=== PATIENT | female | born 1950 | race Two or more races ===

== ENCOUNTER 2022-03-27 12:26 | Emergency (ER) | payer OTHER, SELFPAY ==
--- NOTE | ~2022-03-27 | CT_ITS ---
EXAMINATION: CT ABDOMEN AND PELVIS WITH CONTRAST CLINICAL INFORMATION: Left lower quadrant pain. Constipation. COMPARISON: None TECHNIQUE: Multidetector volumetric images were obtained from the superior aspect of the liver through the pubic symphysis following administration 85 mL of Omnipaque 350 intravenous contrast. Sagittal and coronal reformatted images were obtained on the technologist's workstation. Oral contrast: No This CT examination was performed using dose optimization techniques as appropriate, variously including the following: *Automated exposure control *Adjustment of mA and/or kV according to patient size (this includes techniques or standardized protocols for targeted exams where dose is matched to indication/reason for exam; i.e. extremities or head) *Use of iterative reconstruction technique DLP: 833 mGy-cm FINDINGS: LUNG BASES: The lung bases are clear. Coronary artery calcifications are present. LIVER, GALLBLADDER, AND BILIARY TREE: The liver is normal in size, shape, and attenuation. No focal hepatic lesion or biliary ductal dilatation is present. The gallbladder is absent. PANCREAS: Unremarkable. SPLEEN: Unremarkable. ADRENAL GLANDS: Unremarkable. KIDNEYS AND URETERS: The kidneys are normal in size, shape, and attenuation. No hydronephrosis, hydroureter, or calculi seen. No perinephric stranding. Simple cyst at the mid to lower pole of the left kidney anteriorly. No specific follow-up recommended. BLADDER: Unremarkable. GASTROINTESTINAL TRACT: The stomach is unremarkable. Normal caliber small bowel. There is no obstruction. Normal appendix. Mild diffuse colonic stool burden. Diverticulosis which is greatest at the sigmoid colon. No diverticulitis. Stool distends the rectum. No free air or free fluid. ABDOMINAL WALL: No significant hernia is appreciated. LYMPH NODES: Normal. VASCULAR: Normal caliber aorta with mild atherosclerotic calcification. Retroaortic left renal vein. PELVIC VISCERA: The uterus and adnexa are unremarkable. OSSEOUS STRUCTURES: No acute or suspicious osseous abnormality. Degenerative changes are seen throughout the spine. Mild degenerative change of both hips. CT/CT abdomen pelvis w IV con IMPRESSION: No acute findings of the abdomen or pelvis. Mild colonic stool burden. Diverticulosis without diverticulitis. Fleischner guidelines were followed.
--- NOTE | 2022-03-27 13:09 | ED.ABDPAIN ---
HPI - Abdominal Pain General Chief Complaint: General Medical <Miranda Henderson CNP - Last Filed: 03/27/22 13:14> Stated Complaint: Constipated 1xweek <Miranda Henderson CNP - Last Filed: 03/27/22 13:14> Time Seen by Provider: 03/27/22 14:00 <Miranda Henderson CNP - Last Filed: 03/27/22 13:14> Source: patient <Garo Rayo MD - Last Filed: 03/27/22 16:50> Mode of arrival: ambulatory <Garo Rayo MD - Last Filed: 03/27/22 16:50> Limitations: no limitations <Garo Rayo MD - Last Filed: 03/27/22 16:50> History of Present Illness HPI narrative: This is a 72 years old patient presented to the emergency department with chief complaint of constipation x1 week she was sent by the PCP for CT scan. The patient denies any nausea vomiting she has mild abdominal pain <Garo Rayo MD - Last Filed: 03/27/22 16:50> Pertinent past history: none <Garo Rayo MD - Last Filed: 03/27/22 16:50> Onset (ago): day(s) (7) <Garo Rayo MD - Last Filed: 03/27/22 16:50> Pain Consistency: constant <Garo Rayo MD - Last Filed: 03/27/22 16:50> Severity: mild <Garo Rayo MD - Last Filed: 03/27/22 16:50> Quality: cramping <Garo Rayo MD - Last Filed: 03/27/22 16:50> Related Data Allergies/Adverse Reactions: Allergies Allergy/AdvReac Type Severity Reaction Status Date / Time Unable to Assess Allergy Unverified 03/27/22 13:14 <Miranda Henderson CNP - Last Filed: 03/27/22 13:14> Review of Systems Constitutional: Reports no additional constitutional complaints <Garo Rayo MD - Last Filed: 03/27/22 16:50> Cardiovascular: Reports no additional cardiovascular complaints <Garo Rayo MD - Last Filed: 03/27/22 16:50> Gastrointestinal: Reports other (constipation) <Garo Rayo MD - Last Filed: 03/27/22 16:50> [facility] Past Medical History [facility] Narrative: constipation ,obesity <Garo Rayo MD - Last Filed: 03/27/22 16:50> Social History Social History: Social History Advance Directives: No <Miranda Henderson CNP - Last Filed: 03/27/22 13:14> Physical Exam ED Vital Signs: Vital Signs - 24 hr 03/27/22 13:10 Temperature 97.1 F Pulse Rate 96 Respiratory Rate 20 Blood Pressure 149/79 H Pulse Oximetry 96 Oxygen Delivery Method Room Air BMI result Body Mass Index 42.6 <Miranda Henderson CNP - Last Filed: 03/27/22 13:14> Vital Signs - 24 hr 03/27/22 13:10 Temperature 97.1 F Pulse Rate 96 Respiratory Rate 20 Blood Pressure 149/79 H Pulse Oximetry 96 Oxygen Delivery Method Room Air BMI result Body Mass Index 42.6 <Garo Rayo MD - Last Filed: 03/27/22 16:50> Const General: cooperative <Garo Rayo MD - Last Filed: 03/27/22 16:50> Nutritional Appearance: well nourished <Garo Rayo MD - Last Filed: 03/27/22 16:50> Orientation/consciousness: patient oriented x3 <Garo Rayo MD - Last Filed: 03/27/22 16:50> HENMT Head: Yes normal to inspection <Garo Rayo MD - Last Filed: 03/27/22 16:50> General nose exam: Normal external nose present <Garo Rayo MD - Last Filed: 03/27/22 16:50> Face and sinus: Yes normal facial exam <Garo Rayo MD - Last Filed: 03/27/22 16:50> Throat: Yes posterior oropharynx normal <Garo Rayo MD - Last Filed: 03/27/22 16:50> Neck Neck: Yes normal visual inspection and Yes full ROM <Garo Rayo MD - Last Filed: 03/27/22 16:50> Chest Chest palpation & inspection: normal inspection of the chest <Garo Rayo MD - Last Filed: 03/27/22 16:50> Resp Effort & Inspection: normal respiratory effort and able to speak in complete sentences <Garo Rayo MD - Last Filed: 03/27/22 16:50> Auscultation: clear to auscultation bilaterally <Garo Rayo MD - Last Filed: 03/27/22 16:50> Cardio Jugular venous distension: no JVD <Garo Rayo MD - Last Filed: 03/27/22 16:50> Rate: regular rate <Garo Rayo MD - Last Filed: 03/27/22 16:50> Rhythm: regular rhythm <Garo Rayo MD - Last Filed: 03/27/22 16:50> GI Inspection: Yes normal to inspection <Garo Rayo MD - Last Filed: 03/27/22 16:50> Palpation (GI): Soft to palpation, not firm, nontender and no guarding <Garo Rayo MD - Last Filed: 03/27/22 16:50> Auscultation: normal bowel sounds <Garo Rayo MD - Last Filed: 03/27/22 16:50> General: Yes no CVA tenderness <Garo Rayo MD - Last Filed: 03/27/22 16:50> Back/Spine/Pelvis Back: no CVA tenderness <Garo Rayo MD - Last Filed: 03/27/22 16:50> Skin General skin exam: no rashes or lesions noted, elasticity normal and turgor normal <Garo Rayo MD - Last Filed: 03/27/22 16:50> Lesions: no lesions <Garo Rayo MD - Last Filed: 03/27/22 16:50> Rashes: no rashes <Garo Rayo MD - Last Filed: 03/27/22 16:50> Neuro General: patient oriented x3 <Garo Rayo MD - Last Filed: 03/27/22 16:50> Cranial nerves: Yes CN's II-XII intact bilaterally <Garo Rayo MD - Last Filed: 03/27/22 16:50> Cognition (Neuro): normal cognition <Garo Rayo MD - Last Filed: 03/27/22 16:50> Gait exam (Neuro): Normal gait present <Garo Rayo MD - Last Filed: 03/27/22 16:50> Course Course Course Narrative: This is an RME: Additional HPI, ROS, PE not included below will be deferred to primary provider. Patient is a 72-year-old female who presents to the emergency department, Sent from primary care doctors office for constipation x 1 week and lower ABD pain, particullarly on the left. Was sent in due to concerns of presentation to evaluate for bowel obstruction. Reports she is taking Linzess, and Miralax without any improvement. She states occasionally with very small movements. Denies fevers, chills, nausea, vomiting, genitourinary symptoms. Denies any past history of bowel obstruction or abdominal surgery. Plan: labs, CT of ABD/pelvis <Miranda Henderson CNP - Last Filed: 03/27/22 13:14> Medical Decision Making Medical Decision Making MDM Narrative: 72 years old presented with abdominal pain differential diagnoses small-bowel obstruction diverticulitis constipation <Garo Rayo MD - Last Filed: 03/27/22 16:50> Differential Diagnosis SBO, diverticulitis, colitis, constipation <Garo Rayo MD - Last Filed: 03/27/22 16:50> Lab Data Result Diagrams: 03/27/22 13:26 03/27/22 13:26 <Miranda Henderson CNP - Last Filed: 03/27/22 13:14> Labs: Lab Results 03/27/22 03/27/22 Range/Units 13:26 13:26 WBC 9.0 (4.8-10.8) X10*3/uL RBC 4.88 (4.20-5.50) X10*6/uL Hgb 14.3 (12.0-16.0) g/dl Hct 44.6 (37.0-47.0) % MCV 91.4 (80.0-98.0) fL MCH 29.3 (27.0-33.0) pg MCHC 32.1 (31.0-35.0) g/dl RDW 13.3 (11.0-16.0) % Plt Count 263 (160-400) X10*3/uL MPV 9.6 (9.4-12.3) fL Immature Gran % (Auto) 0.4 (0.0-0.4) % Neut % (Auto) 68.0 (45-73) % Lymph % (Auto) 21.6 (20-40) % [place] % (Auto) 8.4 (2-11) % Eos % (Auto) 1.3 (0-4) % Baso % (Auto) 0.3 (0-2) % Lymph # (Auto) 1.9 (1.2-4.9) X10*3/uL [place] # (Auto) 0.8 (0.1-1.2) X10*3/uL Eos # (Auto) 0.1 (0.0-0.4) X10*3/uL Baso # (Auto) 0.0 (0.0-0.2) X10*3/uL Abs Immat Gran (auto) 0.04 H (0.00-0.03) X10*3/uL Absolute Neuts (auto) 6.1 (2.0-8.3) x10*3/uL Absolute Nucleated RBC 0.000 (0.0-0.012) X10*3/uL Nucleated RBC % (auto) 0.0 (0.0-0.2) /100WBC Sodium 141 (135-145) mmol/L Potassium 4.0 (3.3-5.1) mmol/L Chloride 107 (96-108) mmol/L Carbon Dioxide 25 (22-29) mmol/L Anion Gap 13 (12-20) BUN 20 H (9-16) mg/dL Creatinine 0.72 (0.5-1.4) mg/dL Estim Creat Clear Calc 73.6 Estimated GFR > 60 Random Glucose 65 (60-115) mg/dL Calcium 9.4 (8.4-10.2) mg/dL Total Bilirubin 0.3 (0.0-1.0) mg/dL AST 28 (5-31) U/L ALT 25 (0-31) U/L Alkaline Phosphatase 96 (39-117) U/L Total Protein 7.4 (6.5-8.0) g/dL Albumin 4.0 (3.5-5.0) g/dL Lipase 33 (8-78) U/L <Miranda Henderson, HVAC SERVICES PROFESSIONAL - Last Filed: 03/27/22 13:14> Lab Results 03/27/22 03/27/22 Range/Units 13:26 13:26 WBC 9.0 (4.8-10.8) X10*3/uL RBC 4.88 (4.20-5.50) X10*6/uL Hgb 14.3 (12.0-16.0) g/dl Hct 44.6 (37.0-47.0) % MCV 91.4 (80.0-98.0) fL MCH 29.3 (27.0-33.0) pg MCHC 32.1 (31.0-35.0) g/dl RDW 13.3 (11.0-16.0) % Plt Count 263 (160-400) X10*3/uL MPV 9.6 (9.4-12.3) fL Immature Gran % (Auto) 0.4 (0.0-0.4) % Neut % (Auto) 68.0 (45-73) % Lymph % (Auto) 21.6 (20-40) % [place] % (Auto) 8.4 (2-11) % Eos % (Auto) 1.3 (0-4) % Baso % (Auto) 0.3 (0-2) % Lymph # (Auto) 1.9 (1.2-4.9) X10*3/uL [place] # (Auto) 0.8 (0.1-1.2) X10*3/uL Eos # (Auto) 0.1 (0.0-0.4) X10*3/uL Baso # (Auto) 0.0 (0.0-0.2) X10*3/uL Abs Immat Gran (auto) 0.04 H (0.00-0.03) X10*3/uL Absolute Neuts (auto) 6.1 (2.0-8.3) x10*3/uL Absolute Nucleated RBC 0.000 (0.0-0.012) X10*3/uL Nucleated RBC % (auto) 0.0 (0.0-0.2) /100WBC Sodium 141 (135-145) mmol/L Potassium 4.0 (3.3-5.1) mmol/L Chloride 107 (96-108) mmol/L Carbon Dioxide 25 (22-29) mmol/L Anion Gap 13 (12-20) BUN 20 H (9-16) mg/dL Creatinine 0.72 (0.5-1.4) mg/dL Estim Creat Clear Calc 73.6 Estimated GFR > 60 Random Glucose 65 (60-115) mg/dL Calcium 9.4 (8.4-10.2) mg/dL Total Bilirubin 0.3 (0.0-1.0) mg/dL AST 28 (5-31) U/L ALT 25 (0-31) U/L Alkaline Phosphatase 96 (39-117) U/L Total Protein 7.4 (6.5-8.0) g/dL Albumin 4.0 (3.5-5.0) g/dL Lipase 33 (8-78) U/L <Garo Rayo MD - Last Filed: 03/27/22 16:50> Medications Administered Discontinued Medications Generic Name Dose Route Start Last Admin Trade Name Freq PRN Reason Stop Dose Admin Iohexol 100 ml 03/27/22 14:24 03/27/22 14:25 Iohexol 350 Mg/Ml 100 Ml Infus..Btl IV 03/27/22 14:25 85 ml ONCE ONE Administration Sodium Biphosphate/Sodium Phosphate 133 ml 03/27/22 15:37 03/27/22 15:49 Sodium Phosphate,[place]-Dibasic 133 Ml Enema [place] 03/27/22 15:38 133 ml ONCE ONE Administration <Miranda Henderson CNP - Last Filed: 03/27/22 13:14> Medications Administered Discontinued Medications Generic Name Dose Route Start Last Admin Trade Name Freq PRN Reason Stop Dose Admin Iohexol 100 ml 03/27/22 14:24 03/27/22 14:25 Iohexol 350 Mg/Ml 100 Ml Infus..Btl IV 03/27/22 14:25 85 ml ONCE ONE Administration Sodium Biphosphate/Sodium Phosphate 133 ml 03/27/22 15:37 03/27/22 15:49 Sodium Phosphate,[place]-Dibasic 133 Ml Enema [place] 03/27/22 15:38 133 ml ONCE ONE Administration <Garo Rayo MD - Last Filed: 03/27/22 16:50> Discharge Plan Discharge Clinical Impression: Constipation <Miranda Henderson CNP - Last Filed: 03/27/22 13:14> Patient Disposition: Home, Self-Care <Miranda Henderson CNP - Last Filed: 03/27/22 13:14> Instructions: Constipation (ED) <Miranda Henderson CNP - Last Filed: 03/27/22 13:14> Additional Instructions: Follow-up primary care physician return if you worse any concern <Miranda Henderson CNP - Last Filed: 03/27/22 13:14> Referrals: Richelle James MD [Primary Care Provider] - 03/30/22 <Miranda Henderson CNP - Last Filed: 03/27/22 13:14> Interventions: ED Discharge Assessment Last Done: 03/27/22 16:22 <Miranda Henderson CNP - Last Filed: 03/27/22 13:14> Discharge Date/Time: 03/27/22 16:24 <Miranda Henderson CNP - Last Filed: 03/27/22 13:14>
[2022-03-27 13:10] VITALS: BP 149/79; PULSE 96; RESP 20; TEMP 36.2; O2SAT 96; BMI 42.6
[2022-03-27 13:31] LABS: MANUAL DIFF FLAG NO
[2022-03-27 13:32] LABS: Basophils Percent Auto 0.3 % (0-2); Eosinophils Absolute Auto 0.1 X10*3/uL (0.0-0.4); Eosinophils Percent Auto 1.3 % (0-4); Hematocrit 44.6 % (37.0-47.0); Hemoglobin 14.3 g/dl (12.0-16.0); Imm Gran Abs Auto 0.04 X10*3/uL (0.00-0.03); Imm Gran Pct Auto 0.4 % (0.0-0.4); Lymphocytes Absolute Auto 1.9 X10*3/uL (1.2-4.9); Lymphocytes Percent Auto 21.6 % (20-40); Mean Corpuscular HGB Conc 32.1 g/dl (31.0-35.0); Mean Corpuscular Hemoglobin 29.3 pg (27.0-33.0); Mean Corpuscular Volume 91.4 fL (80.0-98.0); Mean Platelet Volume 9.6 fL (9.4-12.3); Monocytes Absolute Auto 0.8 X10*3/uL (0.1-1.2); Monocytes Percent Auto 8.4 % (2-11); Neutrophils Absolute Auto 6.1 x10*3/uL (2.0-8.3); Platelet Count 263 X10*3/uL (160-400); Red Blood Count 4.88 X10*6/uL (4.20-5.50); Red Cell Distribution Width 13.3 % (11.0-16.0)
[2022-03-27 13:55] LABS: Alanine Aminotransferase 25 U/L (0-31); Alkaline Phosphatase 96 U/L (39-117); Anion Gap 13 (12-20); Aspartate Amino Transferase 28 U/L (5-31); Bilirubin Total 0.3 mg/dL (0.0-1.0); Blood Urea Nitrogen 20 mg/dL (9-16); Calcium 9.4 mg/dL (8.4-10.2); Carbon Dioxide 25 mmol/L (22-29); Chloride 107 mmol/L (96-108); Creatinine Clr Calc Pharmacy 73.6; Estimated Glomerular Filt Rate > 60; Glucose Random 65 mg/dL (60-115); Lipase 33 U/L (8-78); Sodium 141 mmol/L (135-145); Total Protein 7.4 g/dL (6.5-8.0)
--- OUTSIDE RECORDS SUMMARY | 2022-03-27 13:58 | XMS_ITS | Continuity of Care Document ---
:1950 Author Organization [facility] Address [address] [place] [address] Drive [address] [place] [address]- Care Team Providers Name Role Phone Sandy Mccall MD Primary Care Physician [place] [facility] Date(s[place]/18/20 - 09/25/[address] [place] [id number] Attending Physician: Tata Leiva RD Referring Physician: Sandy Mccall MD Allergies, Adverse Reactions, Alerts Substance Reaction Severity Status NKA Active Medications amiTRIPTYLINE By Mouth, Daily at bedtime, 0 Refills, Maintenance, 07/05/14 11:53:41 Start Date: 07/05/14 Status: Orderedibuprofen 600 mg oral tablet 1 tablet = 600 mg, By Mouth, 4 times a day, PRN Pain, # 40 tablet, 2 Refills, Maintenance, Tablet Start Date: 11/18/09 Status: OrderedLinzess By Mouth, Daily, 0 Refills, Maintenance, 06/24/20 14:28:00 EDT, Partial fill upon patient request ifthe prescription is for a schedule II opioid drug. Start Date: 06/24/20 Status: OrderedOmeprazole By Mouth, Daily, 0 Refills, Maintenance, 07/05/14 11:53:47 Start Date: 07/05/14 Status: OrderedPercocet-2.5/325 1 tablet, By Mouth, Every 6 hours, 0 Refills, Maintenance, 12/02/17 10:06:34 EDT Start Date: 12/02/17 Status: Ordered Problem List Condition Effective Dates Status Health Status Informant Binge eating disorder, mild, in Active partial remission(Confirmed) Morbid obesity with BMI of 40.0-44.9, Active adult(Confirmed) Constipation(Confirmed) Active Depression(Confirmed) Active Periumblical hernia(Confirmed) Active Dyspepsia(Confirmed) Active Osteoarthritis(Confirmed) Active Prediabetes(Confirmed) Active Stomach pains(Confirmed) Active Vital Signs Most recent to oldest [Reference Range]: 1 Height 152 cm (09/18/20 1:07 PM) Weight 94.5 kg (09/18/20 1:07 PM) Body Mass Index [18.5-24.99] 40.9 *>HHI* (09/18/20 1:07 PM) Social History Social History Type Response Smoking Status Former smoker; Type: Cigaret bronson; Other: quit 48 yrs ago; entered on: 12/02/17 Sex
--- OUTSIDE RECORDS SUMMARY | 2022-03-27 13:58 | XMS_ITS | Continuity of Care Document ---
:1950 Author Organization [facility] Address Unavailable , Care Team Providers Name Role Phone Sandy Mccall MD Primary Care Physician Encounter [facility] [place] Date(s): 12/11/20 - 12/18/20 [facility] Attending Physician: Tata Leiva RD Allergies, Adverse Reactions, Alerts Substance Reaction Severity [...] oldest [Reference Range]: 1 Height 152 cm (12/11/20 2:25 PM) Weight 94.4 kg (12/11/20 2:25 PM) Body Mass Index [18.5-24.99] 40.86 *>HHI* (12/11/20 2:25 PM) Social History Social History Type Response Smoking Status Former smoker; Type: Cigaret bronson; Other: quit 48 yrs ago; entered on: 12/02/17 Sex
--- OUTSIDE RECORDS SUMMARY | 2022-03-27 13:58 | XMS_ITS | Continuity of Care Document ---
:1950 Author Organization [facility] Address Unavailable , Care Team Providers Name Role Phone Sandy Mccall MD Primary Care Physician Encounter [facility] Date(s): 10/30/20 - 11/06/20 [facility] Attending Physician: Tata Leiva RD Allergies, [...] oldest [Reference Range]: 1 Height 152 cm (10/30/20 11:33 AM) Weight 94.4 kg (10/30/20 11:33 AM) Body Mass Index [18.5-24.99] 40.86 *>HHI* (10/30/20 11:33 AM) Social History Social History Type Response Smoking Status Former smoker; Type: Cigaret bronson; Other: quit 48 yrs ago; entered on: 12/02/17 Sex
--- OUTSIDE RECORDS SUMMARY | 2022-03-27 13:58 | XMS_ITS | Continuity of Care Document ---
:1950 Author Organization [facility] Address [address] [place] [id number]- Care Team Providers Name Role Phone Sandy Mccall MD Primary Care Physician Encounter [facility] Date(s): 09/19/20 - 09/19/[address] [address]- Discharge Disposition: A-D/C Home Attending Physician: David TRAN, Hollis Robert Admitting Physician: David TRAN, Hollis Robert Referring Physician: Not on Staff, Referring MD Allergies, Adverse Reactions, Alerts Substance Reaction [...] Osteoarthritis(Confirmed) Active Prediabetes(Confirmed) Active Stomach pains(Confirmed) Active Results Radiology Reports Exam Date Time Procedure Performing Provider Status 09/19/20 2:32 PM Chest 2 Views Frontal and Lat Melissa Calvin n; Auth (Verified) Notes:(Chest 2 Views Frontal and Lat) Reason For Exam: AnginaRESULT: Chest 2 Views Frontal and Lat Chest 2 Views Frontal and Lat CLINICAL INDICATION: Chest pain and dizziness. COMPARISON: None available. FINDINGS: The cardiac silhouette is within normal limits. Hilar and mediastinal contours are normal.There is minimal calcification of the aortic arch. The lungs are clear. There is no pleural effusion, pneumothorax, or evidence of CHF. No acute osseous abnormality is noted. Left humeral prosthesis is seen. IMPRESSION: No acute cardiopulmonary process WSN: [id number] Ordering Physician: Gray Carvalho Dictated By: Alexandrea Arango MD Dictated Date/Time: 09/19/20 2:35 pm Reviewed By: Alexandrea Arango MD Signed By: Alexandrea Arango MD Signed Date/Time: 09/19/20 2:35 pm Transcribed By: DANIEL Transcribed Date/Time: 09/19/20 2:34 pm Vital Signs Most recent to oldest [Reference 1 2 3 Range]: Oxygen Saturation [94-100 %] 99 % 98 % 99 % (09/19/20 6:23 PM) (09/19/20 3:39 PM) (09/19/20 2:10 P M) Pulse Rate [55-90 bpm] 84 bpm 76 bpm 77 bpm (09/19/20 6:23 PM) (09/19/20 3:39 PM) (09/19/20 2:10 P M) Blood Pressure [90-138/55-84 mm 147/88 mm Hg 151/71 mm Hg 150/67 mm Hg Hg] *H* *H* *H* (09/19/20 6:23 PM) (09/19/20 3:39 PM) (09/19/20 2:10 P M) Respiratory Rate [16-30 br/min] 16 br/min 16 br/min 16 br/min (09/19/20 6:23 PM) (09/19/20 3:39 PM) (09/19/20 2:10 P M) Temperature [96.8-100.4 DegF] 98.2 DegF (09/19/20 12:59 PM) Mode of Delivery (Oxygen) Room air RA RA (09/19/20 6:23 PM) (09/19/20 3:39 PM) (09/19/20 2:10 P M) Blood pressure sites Arm, right (09/19/20 12:59 PM) Temperature Route Oral (09/19/20 12:59 PM) Social History Social History Type Response Smoking Status Former smoker; Type: Cigaret bronson; Other: quit 48 yrs ago; entered on: 12/02/17 Sex
--- OUTSIDE RECORDS SUMMARY | 2022-03-27 13:58 | XMS_ITS | Continuity of Care Document ---
:1950 Author Organization [facility] Address [address] [place] [phone]- Care Team Providers Name Role Phone Sandy Mccall MD [id number] Date(s): 09/17/20 - 10/17/[address] [address] Attending Physician: Rosmery Mann Admitting Physician: Rosmery Mann Referring Physician: AdmtrRosmery Allergies, Adverse Reactions, Alerts Substance Reaction Severity [...] Osteoarthritis(Confirmed) Active Prediabetes(Confirmed) Active Stomach pains(Confirmed) Active Social History Social History Type Response Smoking Status Former smoker; Type: Cigaret bronson; Other: quit 48 yrs ago; entered on: 12/02/17 Sex
--- OUTSIDE RECORDS SUMMARY | 2022-03-27 13:58 | XMS_ITS | Continuity of Care Document ---
:1950 Author Organization [facility] Address [facility] [address] [place] [id number]- Care Team Providers Name Role Phone Sandy Mccall MD Primary Care Physician [place] [facility] 06/16/19 [facility] [address] [place] [id number] [facility] Attending Physician: Rosmery Mann Admitting Physician: Rosmery Mann Referring Physician: AdmRosmery varela Allergies, Adverse Reactions, Alerts Substance Reaction Severity Status NKA Active Medications amiTRIPTYLINE By Mouth, Daily at bedtime, 0 Refills, Maintenance, 07/05/14 11:53:41 Start Date: 07/05/14 Status: OrderedAtivan 0.5 mg oral tablet 1 tablet = 0.5 mg, By Mouth, Every 6 hours, # 10 tablet, 0 Refills, Soft Stop, 06/11/18 23:30:58 EDT, Tablet Start Date: 06/11/18 Status: Orderedibuprofen 600 mg oral tablet 1 tablet = 600 mg, By Mouth, 4 times a day, PRN Pain, # 40 tablet, 2 Refills, Maintenance, Tablet Start Date: 11/18/09 Status: OrderedOmeprazole By Mouth, Daily, 0 Refills, Maintenance, 07/05/14 11:53:47 Start Date: 07/05/14 Status: OrderedPercocet-2.5/325 1 tablet, By Mouth, Every 6 hours, 0 Refills, Maintenance, 12/02/17 10:06:34 EDT Start Date: 12/02/17 Status: Orderedzolpidem 5 mg oral tablet 1 tablet = 5 mg, By Mouth, Daily at bedtime, PRN Sleep, # 14 tablet, 2 Refills, Maintenance, Tablet Start Date: 11/18/09 Status: Ordered Problem List Condition Effective Dates Status Health Status Informant Binge eating disorder, mild, in Active partial remission(Confirmed) Morbid obesity with BMI of 40.0-44.9, Active adult(Confirmed) Constipation(Confirmed) Active Depression(Confirmed) Active Periumblical hernia(Confirmed) Active Osteoarthritis(Confirmed) Active Stomach pains(Confirmed) Active Social History Social History Type Response Smoking Status Former smoker; Type: Cigaret bronson; Other: quit 48 yrs ago; entered on: 12/02/17 Sex
--- OUTSIDE RECORDS SUMMARY | 2022-03-27 13:58 | XMS_ITS | Continuity of Care Document ---
:1950 Author Organization [facility] Address [address] [place] [phone]- Care Team Providers Name Role Phone Sandy Mccall MD Primary Care Physician Encounter [facility] [place] Date(s): 07/18/21 - 07/18/[address] [address]- Discharge Disposition: A-D/C Home Attending Physician: Tre Webb MD Admitting Physician: Tre Webb MD Referring Physician: Not on Staff, Referring MD Allergies, Adverse Reactions, Alerts No Known Allergies Medications amiTRIPTYLINE By Mouth, Daily at bedtime, [...] II opioid drug. Start Date: 06/24/20 Status: OrderedMorPHINE Inj 4 mg, Injection, IV Push Slowly, Every 5 minutes for 3 doses/times, PRN for Pain , Moderate, and SBPgreater than 100, Routine, 07/18/21 13:40:00 EDT, Stop date Limited # of times Start Date: 07/18/21 Stop Date: 07/19/21 Status: DiscontinuedOmeprazole By Mouth, Daily, 0 Refills, Maintenance, 07/05/14 11:53:47 Start Date: 07/05/14 Status: OrderedPercocet-2.5/325 1 tablet, By Mouth, Every 6 hours, 0 Refills, Maintenance, 12/02/17 10:06:34 EDT Start Date: 12/02/17 Status: OrderedValium 10 mg oral tablet 10 mg, 1, tablet, By Mouth, 2 times a day, PRN, # 12 tablet, Refills 0, Tot. Refills 0, Maintenance,Pain , Moderate, 07/18/21 17:33:00 EDT, Route to Pharmacy Electronically, [facility]/pharmacy #[id number], Partial fill upon patient request if the prescription is... Start Date: 07/18/21 Status: Ordered Problem List Condition Effective Dates Status Health Status Informant Binge eating disorder, mild, in Active partial remission(Confirmed) Morbid obesity with BMI of 40.0-44.9, Active adult(Confirmed) Constipation(Confirmed) Active Depression(Confirmed) Active Periumblical hernia(Confirmed) Active Dyspepsia(Confirmed) Active Osteoarthritis(Confirmed) Active Prediabetes(Confirmed) Active Stomach pains(Confirmed) Active Vital Signs Most recent to oldest 1 2 3 [Reference Range]: Oxygen Saturation [94-100 %] 100 % 100 % 100 % (07/18/21 6:09 PM) (07/18/21 3:57 PM) (07/18/21 2:1 0 PM) Pulse Rate [55-90 bpm] 89 bpm 99 bpm 105 bpm (07/18/21 6:09 PM) *H* *H* (07/18/21 3:57 PM) (07/18/21 2:10 PM) Blood Pressure [90-138/55-84 mm 159/100 mm Hg 168/100 mm Hg 166/102 mm Hg Hg] *H* *H* *H* (07/18/21 6:09 PM) (07/18/21 3:57 PM) (07/18/21 2:1 0 PM) Respiratory Rate [16-30 br/min] 19 br/min 20 br/min 20 br/min (07/18/21 6:09 PM) (07/18/21 3:57 PM) (07/18/21 2:1 0 PM) Temperature [96.8-100.4 DegF] 98.7 DegF 98.8 DegF 98 .7 DegF (07/18/21 6:09 PM) (07/18/21 1:34 PM) (07/18/21 1:2 3 PM) Mode of Delivery (Oxygen) Room air Room air Room a ir (07/18/21 6:09 PM) (07/18/21 3:57 PM) (07/18/21 2:1 0 PM) Blood pressure sites Arm, left Arm, left Arm, left (07/18/21 6:09 PM) (07/18/21 3:57 PM) (07/18/21 2:1 0 PM) Temperature Route Oral Oral Oral (07/18/21 6:09 PM) (07/18/21 1:34 PM) (07/18/21 1:2 3 PM) Social History Social History Type Response Smoking Status Former smoker; Type: Cigaret bronson; Other: quit 48 yrs ago; entered on: 12/02/17 Sex
--- OUTSIDE RECORDS SUMMARY | 2022-03-27 13:58 | XMS_ITS | Continuity of Care Document ---
:1950 Author Organization [facility] Address Unavailable , Care Team Providers Name Role Phone Sandy Mccall MD Primary Care Physician Encounter [facility] [place] Date(s): 01/23/21 - 02/22/21 [facility] Attending Physician: Rosmery Mann Admitting Physician: Rosmery Mann Referring Physician: Rosmery Mann Allergies, Adverse Reactions, Alerts Substance Reaction Severity [...]
--- OUTSIDE RECORDS SUMMARY | 2022-03-27 13:58 | XMS_ITS | Continuity of Care Document ---
:1950 Author Organization [address] [place] [id number]- Care Team Providers Name Role Phone Sandy Mccall MD Primary Care Physician Encounter [facility] [place] Date(s): 06/24/20 - 08/11/[address] [place] [id number]- Attending Physician: Hollis Patel Referring Physician: Sandy Mccall MD Allergies, Adverse [...]
--- OUTSIDE RECORDS SUMMARY | 2022-03-27 13:58 | XMS_ITS | Continuity of Care Document ---
:1950 Author Organization [facility] Address Adult Weight Management [address] [place] [phone]- Care Team Providers Name Role Phone Sandy Mccall MD Primary Care Physician Encounter [facility] [place] Date(s): 04/14/19 - 07/06/19 [facility] Adult Weight Management [address] [place] [phone]- [facility] Attending Physician: Frandy Palumbo MD Referring Physician: Sandy Mccall MD Allergies, Adverse [...]
--- OUTSIDE RECORDS SUMMARY | 2022-03-27 13:58 | XMS_ITS | Continuity of Care Document ---
:1950 Author Organization [facility] Address [address] [place] [address] Drive [address] [place] [phone]- Care Team Providers Name Role Phone Sandy Mccall MD Primary Care Physician Encounter [facility] [id number] Date(s): 08/08/20 - 08/15/[address] [place] [id number]- Encounter Diagnosis Morbid obesity with BMI of 40.0-44.9, adult (Discharge Diagnosis) - 08/08/20 Attending Physician: Hollis Patel Referring Physician: Sandy [...] Osteoarthritis(Confirmed) Active Prediabetes(Confirmed) Active Stomach pains(Confirmed) Active Diagnosis Diagnosis Type Effective Dates Health Status Clinical In [facility] Service Morbid obesity Discharge 08/08/20 with BMI of Diagnosis 40.0-44.9, adult Vital Signs Most recent to oldest [Reference Range]: 1 Height 151.13 cm (08/08/20 9:12 AM) Weight 95.6 kg (08/08/20 9:12 AM) Pulse Rate [55-90 bpm] 88 bpm (08/08/20 9:12 AM) Body Mass Index [18.5-24.99] 41.86 *>HHI* (08/08/20 9:12 AM) Blood Pressure [90-138/55-84 mm Hg] 139/84 mm Hg *H* (08/08/20 9:12 AM) Temperature [96.8-100.4 DegF] 96.9 DegF (08/08/20 9:12 AM) Blood pressure sites Arm, left (08/08/20 9:12 AM) Temperature Route Temporal (08/08/20 9:12 AM) Weight Obtained Via Standing scale (08/08/20 9:12 AM) Social History Social History Type Response Smoking Status Former smoker; Type: Cigaret bronson; Other: quit 48 yrs ago; entered on: 12/02/17 Sex
--- OUTSIDE RECORDS SUMMARY | 2022-03-27 13:59 | XMS_ITS | Continuity of Care Document ---
:1950 Author Organization [facility] Address [address] [place] [phone]- Care Team Providers Name Role Phone Sandy Mccall MD Primary Care Physician Encounter [facility] [place] Date(s): 09/08/21 - 09/08/[address] [phone]- Encounter Diagnosis Acute post-operative pain (Final) - 09/08/21 Arm numbness left (Final) - 09/08/21 Discharge Disposition: Transferred to an intermediate care faci Attending Physician: Aditi Guardado MD Admitting Physician: Aditi Guardado MD Referring Physician: Not on Staff, Referring [...] Maintenance, 07/05/14 11:53:47 Start Date: 07/05/14 Status: OrderedoxyCODONE 5 mg oral tablet 5 mg, Tablet, By Mouth, Every 2 hours, PRN for Pain , Moderate, Routine, 09/08/21 2:26:00 EDT Start Date: 09/08/21 Stop Date: 09/08/21 Status: DiscontinuedPercocet-2.5/325 1 tablet, By Mouth, Every 6 hours, 0 Refills, Maintenance, 12/02/17 10:06:34 EDT Start Date: 12/02/17 Status: OrderedValium 10 mg oral tablet 10 mg, 1, tablet, By Mouth, 2 times a day, PRN, # 12 tablet, Refills 0, Tot. Refills 0, Maintenance,Pain , Moderate, 07/18/21 17:33:00 EDT, Route to Pharmacy Electronically, [facility]/pharmacy #[id number], Partial fill upon patient request if the prescription is... Start Date: 07/18/21 Status: Ordered Problem List Condition Effective Dates Status Health Status Informant Binge eating disorder, mild, in Active partial remission(Confirmed) Morbid obesity with BMI of 40.0-44.9, Active adult(Confirmed) Constipation(Confirmed) Active Depression(Confirmed) Active Periumblical hernia(Confirmed) Active Dyspepsia(Confirmed) Active Obese class II(Confirmed) Active Osteoarthritis(Confirmed) Active Prediabetes(Confirmed) Active Stomach pains(Confirmed) Active Vital Signs Most recent to oldest 1 2 3 [Reference Range]: Height 157.4 cm 157.4 cm (09/08/21 12:59 AM) (09/08/21 12:45 AM) Weight 95.4 kg 95.4 kg (09/08/21 12:59 AM) (09/08/21 12:45 AM) Oxygen Saturation [94-100 %] 96 % 95 % (09/08/21 4:14 AM) (09/08/21 12:45 AM) Pulse Rate [55-90 bpm] 84 bpm 94 bpm (09/08/21 4:14 AM) *H* (09/08/21 12:45 AM) Body Mass Index [18.5-24.99] 38.51 *>HHI* (09/08/21 12:45 AM) Blood Pressure [90-138/55-84 128/66 mm Hg 135/60 mm Hg mm Hg] (09/08/21 4:14 AM) (09/08/21 12:45 AM) Respiratory Rate [16-30 13 br/min 17 br/min 17 br/mi n br/min] *L* (09/08/21 2:07 AM) (09/08/21 12:45 AM) (09/08/21 4:14 AM) Temperature [96.8-100.4 98.9 DegF DegF] (09/08/21 12:45 AM) Mode of Delivery (Oxygen) Room air Room air (09/08/21 4:14 AM) (09/08/21 12:45 AM) Blood pressure sites Arm, right Arm, right (09/08/21 4:14 AM) (09/08/21 12:45 AM) Temperature Route Oral (09/08/21 12:45 AM) Dry Weight 95.4 kg 95.4 kg (09/08/21 12:59 AM) (09/08/21 12:45 AM) Social History Social History Type Response Smoking Status Former smoker; Type: Cigaret bronson; Other: quit 48 yrs ago; entered on: 12/02/17 Sex
--- OUTSIDE RECORDS SUMMARY | 2022-03-27 13:59 | XMS_ITS | Continuity of Care Document ---
:1950 Author Organization [facility] Address Unavailable , Care Team Providers Name Role Phone Sandy Mccall MD Primary Care Physician Encounter [facility] [place] Date(s): 12/11/20 - 02/22/21 [facility] Attending Physician: Tata Leiva RD Allergies, [...]
--- NOTE | 2022-03-27 14:06 | ED_ITS ---
HPI - General Adult General Chief complaint: General Medical Stated complaint: Constipated 1xweek Time Seen by Provider: 03/27/22 14:00 Related Data Allergies Allergy/AdvReac Type Severity Reaction Status Date / Time Unable to Assess Allergy Unverified 03/27/22 13:14 PMF Social History Social History Advance Directives: No Physical Exam ED Vital Signs: Vital Signs - 24 hr 03/27/22 13:10 Temperature 97.1 F Pulse Rate 96 Respiratory Rate 20 Blood Pressure 149/79 H Pulse Oximetry 96 Oxygen Delivery Method Room Air BMI result Body Mass Index 42.6 Course Reevaluation(s) Reevaluation #1: Rectal exam was done no impaction ,enema given by me in ED Time: 15:53 Reevaluation #2: Pt had large Bowel movement in ED,feels much better Time: 16:19 Medications Administered Discontinued Medications Generic Name Dose Route Start Last Admin Trade Name Freq PRN Reason Stop Dose Admin Iohexol 100 ml 03/27/22 14:24 03/27/22 14:25 Iohexol 350 Mg/Ml 100 Ml Infus..Btl IV 03/27/22 14:25 85 ml ONCE ONE Administration Sodium Biphosphate/Sodium Phosphate 133 ml 03/27/22 15:37 03/27/22 15:49 Sodium Phosphate,King-Dibasic 133 Ml Enema NH 03/27/22 15:38 133 ml ONCE ONE Administration Medical Decision Making Medical Decision Making [facility] Narrative: presented c/o constipation X 1 week concern for SBO Differential Diagnosis Differential Diagnoses: The differential diagnosis associated with the presentation includes SBO/Colitis Admission/Observation Consideration of admission/observation: Escalation of care including admission/observation considered Lab Data [facility] Lab Attestation statement: I reviewed the patient's lab results. 03/27/22 13:26 03/27/22 13:26 Labs: Lab Results 03/27/22 03/27/22 Range/Units 13:26 13:26 WBC 9.0 (4.8-10.8) X10*3/uL RBC 4.88 (4.20-5.50) X10*6/uL Hgb 14.3 (12.0-16.0) g/dl Hct 44.6 (37.0-47.0) % MCV 91.4 (80.0-98.0) fL MCH 29.3 (27.0-33.0) pg MCHC 32.1 (31.0-35.0) g/dl RDW 13.3 (11.0-16.0) % Plt Count 263 (160-400) X10*3/uL MPV 9.6 (9.4-12.3) fL Immature Gran % (Auto) 0.4 (0.0-0.4) % Neut % (Auto) 68.0 (45-73) % Lymph % (Auto) 21.6 (20-40) % King % (Auto) 8.4 (2-11) % Eos % (Auto) 1.3 (0-4) % Baso % (Auto) 0.3 (0-2) % Lymph # (Auto) 1.9 (1.2-4.9) X10*3/uL King # (Auto) 0.8 (0.1-1.2) X10*3/uL Eos # (Auto) 0.1 (0.0-0.4) X10*3/uL Baso # (Auto) 0.0 (0.0-0.2) X10*3/uL Abs Immat Gran (auto) 0.04 H (0.00-0.03) X10*3/uL Absolute Neuts (auto) 6.1 (2.0-8.3) x10*3/uL Absolute Nucleated RBC 0.000 (0.0-0.012) X10*3/uL Nucleated RBC % (auto) 0.0 (0.0-0.2) /100WBC Sodium 141 (135-145) mmol/L Potassium 4.0 (3.3-5.1) mmol/L Chloride 107 (96-108) mmol/L Carbon Dioxide 25 (22-29) mmol/L Anion Gap 13 (12-20) BUN 20 H (9-16) mg/dL Creatinine 0.72 (0.5-1.4) mg/dL Estim Creat Clear Calc 73.6 Estimated GFR > 60 Random Glucose 65 (60-115) mg/dL Calcium 9.4 (8.4-10.2) mg/dL Total Bilirubin 0.3 (0.0-1.0) mg/dL AST 28 (5-31) U/L ALT 25 (0-31) U/L Alkaline Phosphatase 96 (39-117) U/L Total Protein 7.4 (6.5-8.0) g/dL Albumin 4.0 (3.5-5.0) g/dL Lipase 33 (8-78) U/L ABG Data Attestation ABG: I personally reviewed and interpreted this ABG as follows: Independent Interpretation I performed an independent interpretation of an: CT Scan Interpretation: ABDOMINAL WALL: No significant hernia is appreciated.? LYMPH NODES: Normal. VASCULAR: Normal caliber aorta with mild atherosclerotic calcification. Retroaortic left renal vein. PELVIC VISCERA: The uterus and adnexa are unremarkable.? OSSEOUS STRUCTURES: No acute or suspicious osseous abnormality. Degenerative changes are seen throughout the spine. Mild degenerative change of both hips.? CT/CT abdomen pelvis w IV con IMPRESSION: No acute findings of the abdomen or pelvis. Mild colonic stool burden. Diverticulosis without diverticulitis. ? Fleischner guidelines were followed. Dictated By: Kelvin Machuca MD Signed By: <Electronically signed by Kelvin Machuca MD in OV> 03/27/22 1452 Independent Historian Clinical information obtained from an independent historian. History obtained from or confirmed by: Other (daughter) Discharge Plan Discharge Clinical Impression: Constipation Patient Disposition: Home, Self-Care Instructions: Constipation (ED) Additional Instructions: Follow-up primary care physician return if you worse any concern Referrals: Richelle James MD [Primary Care Provider] - 03/30/22 Interventions: ED Discharge Assessment Last Done: 03/27/22 16:22 Discharge Date/Time: 03/27/22 16:24
[2022-03-27] MEDS: iohexoL 350 MG/ML 100 ML INFUS..BTL IV (14:25)
[2022-03-27] MEDS: Sodium Phosphate,Mono-Dibasic 133 ML ENEMA PR (15:49)
== END 2022-03-27 16:24 | disposition home or self-care (01) ==
PROVIDERS: Nurse Practitioner Family; Emergency Provider Emergency Medicine; PCP Internal Medicine
DX: K59.00 Constipation, unspecified (principal); R10.9 Unspecified abdominal pain; Z79.899 Other long term (current) drug therapy
CPT/HCPCS: 36415; 74177; 80053; 83690; 85025; 99283; 99284; Q9967

== ENCOUNTER → 2022-04-24 09:50 | Outpatient (BNVA) | payer OTHER, SELFPAY | PROVIDERS: PCP Internal Medicine; Visit Provider Psychiatry & Neurology Neurology | DX: F09 Unspecified mental disorder due to known physiological condition (principal); R06.83 Snoring; G47.10 Hypersomnia, unspecified | CPT/HCPCS: 99202 ==

== ENCOUNTER → 2022-05-15 13:02 | Outpatient (REF) | payer OTHER, SELFPAY | LOC: HO.SL 13:02 | PROVIDERS: PCP Internal Medicine; Visit Provider Psychiatry & Neurology Neurology | DX: R06.83 Snoring (principal); G47.10 Hypersomnia, unspecified | CPT/HCPCS: 95806 ==

== ENCOUNTER 2022-05-20 12:48 | Outpatient (REF) | payer OTHER, SELFPAY ==
--- NOTE | ~2022-05-20 | MR_ITS ---
EXAMINATION: MR BRAIN WITHOUT CONTRAST CLINICAL INFORMATION: Cognitive disorder COMPARISON: None TECHNIQUE: Multiplanar multisequence MR imaging of the brain was obtained without intravenous contrast. FINDINGS: There is no acute infarct on diffusion-weighted imaging. There is no intracranial hemorrhage on iron-sensitive imaging. No extra-axial collection or mass effect/herniation. Patchy periventricular and deep white matter and left central jacey T2 FLAIR hyperintensities consistent with mild to moderate underlying microangiopathy. No hydrocephalus. Mild age-appropriate generalized cerebral volume loss The major flow voids at the skull base are preserved. The midline structures are normal. The cerebellar tonsils are normally positioned. The craniocervical junction is normal. Marrow signal is within normal limits. The visualized soft tissues are without significant abnormality. No signal abnormality within the paranasal sinuses or within the mastoid air cells. MR/MR head/brain wo con IMPRESSION: No acute intracranial process Mild generalized cerebral volume loss and mild to moderate chronic microangiopathy.
== END 2022-05-20 12:49 | disposition home or self-care (01) ==
LOC: HO.MRI 12:48
PROVIDERS: PCP Internal Medicine; Visit Provider Psychiatry & Neurology Neurology
DX: F09 Unspecified mental disorder due to known physiological condition (principal)
CPT/HCPCS: 70551

== ENCOUNTER 2022-07-07 20:56 | Emergency (ER) | payer OTHER, SELFPAY ==
--- NOTE | 2022-07-07 | ECG_ITS ---
Test Reason : TACHYCARDIA Blood Pressure : / mmHG Vent. Rate : 121 BPM Atrial Rate : 121 BPM P-R Int : 150 ms QRS Dur : 088 ms QT Int : 334 ms P-R-T Axes : 052 -23 069 degrees QTc Int : 474 ms Sinus tachycardia Possible Anterior infarct , age undetermined Abnormal ECG No previous ECGs available Referred By: Generic ED Physician Electronically Signed By:JASMYNE CARRERA
--- NOTE | ~2022-07-07 | CT_ITS ---
EXAMINATION: CT ABDOMEN AND PELVIS WITHOUT CONTRAST CLINICAL INFORMATION: Right upper quadrant pain COMPARISON: CT abdomen pelvis 03/27/2022 TECHNIQUE: Multidetector volumetric imaging was performed from the superior aspect of the liver through the pubic symphysis. Sagittal and coronal reformatted images were obtained on the technologist's workstation. This CT examination was performed using dose optimization techniques as appropriate, variously including the following: *Automated exposure control *Adjustment of mA and/or kV according to patient size (this includes techniques or standardized protocols for targeted exams where dose is matched to indication/reason for exam; i.e. extremities or head) *Use of iterative reconstruction technique DLP: 807 mGy-cm FINDINGS: LUNG BASES: The visualized lung bases are unremarkable. LIVER, GALLBLADDER, AND BILIARY TREE: The liver is normal in size, shape, and attenuation. No focal hepatic lesion or biliary ductal dilatation is present. The gallbladder is not seen. PANCREAS: Unremarkable. SPLEEN: Unremarkable. ADRENAL GLANDS: Unremarkable. KIDNEYS AND URETERS: The kidneys are normal in size, shape, and attenuation. There is a benign 3.5 cm Bosniak class I left renal cyst which needs no additional imaging or follow-up. No solid renal masses. No hydronephrosis, hydroureter, or calculi seen. No perinephric stranding. BLADDER: Unremarkable. GASTROINTESTINAL TRACT: There is sigmoid diverticulosis without diverticulitis The small and large bowel are unremarkable. The appendix, if present, is quite short. There is no evidence of appendicitis.. ABDOMINAL WALL: No significant hernia is appreciated. Dependent fluid/anasarca present behind the lumbosacral spine in the subcutaneous tissues. LYMPH NODES: No retroperitoneal lymphadenopathy. Some mild josué changes are present in the bowel mesentery. VASCULAR: Calcific atherosclerotic plaque without aneurysm PELVIC VISCERA: The uterus and adnexa are unremarkable. OSSEOUS STRUCTURES: Degenerative changes are noted throughout the spine. No bony destructive lesions. CT/CT abdomen pelvis wo IV con IMPRESSION: 1. A cause for the patient's abdominal pain has not been found. 2. Incidental note made of cholecystectomy, sigmoid diverticulosis without diverticulitis and degenerative changes in the spine. Fleischner guidelines were followed.
[2022-07-07 20:57] VITALS: BP 160/90; PULSE 126; RESP 18; TEMP 36.8; BMI 48.4
[2022-07-07 21:30] LABS: MANUAL DIFF FLAG NO
[2022-07-07 21:32] LABS: Basophils Percent Auto 0.4 % (0-2); Eosinophils Absolute Auto 0.1 X10*3/uL (0.0-0.4); Eosinophils Percent Auto 0.6 % (0-4); Hematocrit 41.2 % (37.0-47.0); Hemoglobin 13.2 g/dl (12.0-16.0); Imm Gran Abs Auto 0.04 X10*3/uL (0.00-0.03); Imm Gran Pct Auto 0.4 % (0.0-0.4); Lymphocytes Absolute Auto 0.4 X10*3/uL (1.2-4.9); Lymphocytes Percent Auto 4.1 % (20-40); Mean Corpuscular Hemoglobin 29.3 pg (27.0-33.0); Mean Corpuscular Volume 91.6 fL (80.0-98.0); Mean Platelet Volume 9.7 fL (9.4-12.3); Monocytes Absolute Auto 0.5 X10*3/uL (0.1-1.2); Monocytes Percent Auto 4.7 % (2-11); Neutrophils Absolute Auto 8.9 x10*3/uL (2.0-8.3); Neutrophils Percent Auto 89.8 % (45-73); Platelet Count 219 X10*3/uL (160-400); Red Cell Distribution Width 13.3 % (11.0-16.0); White Blood Count 9.9 X10*3/uL (4.8-10.8)
[2022-07-07 21:54] LABS: Anion Gap 14 (12-20); Blood Urea Nitrogen 19 mg/dL (9-16); Calcium 8.6 mg/dL (8.4-10.2); Carbon Dioxide 23 mmol/L (22-29); Chloride 105 mmol/L (96-108); Creatinine Clr Calc Pharmacy 81.9; Estimated Glomerular Filt Rate > 60; Glucose Random 177 mg/dL (60-115); Lipase 34 U/L (8-78); Sodium 138 mmol/L (135-145)
[2022-07-07 22:00] VITALS: PULSE 115; RESP 19; TEMP 37.4; O2SAT 94
[2022-07-07 22:04] LABS: Troponin-I High Sensitivity 11.7 ng/L (<3.5-17.0)
[2022-07-07 22:50] LABS: Appearance Urine Clear; Color Urine Yellow; Glucose Urine UA Negative (Negative); Leukocyte Esterase Urine Negative (Negative); Nitrite Urine Negative (Negative); PH 5.5 (5.0-9.0); Specific Gravity - Urine >= 1.030 (1.005-1.025); Urine Blood Negative (Negative); Urine Ketones 15 mg/dL (Negative); Urine Protein Trace mg/dL (Neg-Trace)
--- NOTE | 2022-07-07 23:22 | ED_ITS ---
HPI - General Adult General Chief complaint: Nausea/Vomiting/Diarrhea Stated complaint: Dizziness/Nauseas/Vomiting Time Seen by Provider: 07/07/22 22:33 Source: patient, family and bilingual interpreter Mode of arrival: ambulatory History of Present Illness HPI narrative: 72-year-old female with recent diagnosis of diabetes, 3 months ago, started on metformin presents with acute onset of nausea and vomiting after breakfast today she also complains of right upper quadrant pain. The daughter who is at bedside tried to help her throughout the day but patient continued to have episodes of nausea and vomiting. Patient denies any urinary symptoms, shortness of breath, chest pain/palpitations but states that her whole body aches. Related Data Home Medications Medication Instructions Recorded Confirmed amitriptyline 25 mg tablet 50 mg PO BEDTIME 04/15/22 gabapentin 300 mg capsule 300 - 600 mg PO BEDTIME 04/15/22 glipizide 5 mg tablet 5 mg PO DAILY 04/15/22 ibuprofen 800 mg tablet 800 mg PO DAILY PRN pain 04/15/22 linaclotide 145 mcg capsule 145 mcg PO QAM 04/15/22 (Linzess) omeprazole 20 mg capsule,delayed 20 mg PO DAILY 04/15/22 release polyethylene glycol 3350 17 g PO 04/15/22 gram/dose oral powder tizanidine 2 mg capsule 2 mg PO TID PRN muscle spasm 04/15/22 atorvastatin 20 mg tablet 20 mg PO DAILY 04/24/22 lactulose 10 gram/15 mL oral ml PO 04/24/22 solution Allergies Allergy/AdvReac Type Severity Reaction Status Date / Time No Known Allergies Allergy Verified 04/24/22 10:14 Review of Systems Review of Systems: Pertinent positives and negatives as stated in HPI [facility] Past Medical History Source: nursing notes reviewed Medical History Cervical disc disease Cognitive disorder COVID Depression Diabetes DJD (degenerative joint disease) Fibromyalgia Hyperlipidemia Hypersomnia Insomnia Lung nodule Obesity (BMI 35.0-39.9 without comorbidity) Snoring Spinal stenosis Thyroid nodule Surgical History History of bunionectomy Hx of cervical spine surgery Hx of shoulder surgery Status post right knee replacement Family History Family History Sister Diabetes Social History Social History Alcohol intake: never Patient Tobacco Use Status: Never used Tobacco Advance Directives: No Advance Directives Information Provided: Yes Physical Exam ED Vital Signs: Vital Signs - 24 hr 07/07/22 20:57 07/07/22 22:00 07/08/22 01:15 Temperature 98.3 F 99.3 F 98.1 F Pulse Rate 126 H 115 H 107 H Respiratory Rate 18 19 16 Blood Pressure 160/90 H 113/72 Pulse Oximetry 94 96 Oxygen Delivery Method Room Air Room Air BMI result Body Mass Index 48.4 VITAL SIGNS: Reviewed. GENERAL: Elevated BMI, Well developed, well nourished, in no acute distress. HEAD: Normocephalic/atraumatic EYES: PERRLA, EOMI EARS: Ext canals without abnormality OROPHARYNX: no oral lesions noted, posterior pharynx clear NECK: Supple, no adenopathy LUNGS: Normal breath sounds. No adventitious sounds or accessory muscle use. SpO2<94> CARDIOVASCULAR: Regular rate and rhythm without noted murmurs, no JVD or lower extremity edema. ABDOMEN: Soft, right upper quadrant pain, non-distended with bowel sounds. MUSCULOSKELETAL: No tenderness, deformities, or effusions noted on gross inspection. EXTREMITIES: No cyanosis, clubbing or edema. SKIN: Inspection of the skin reveals no rashes, but tactile fever NEUROLOGIC: Alert and oriented x 4. Strength and sensation to light touch were grossly intact x 4. Medications Administered Discontinued Medications Generic Name Dose Route Start Last Admin Trade Name Freq PRN Reason Stop Dose Admin Sodium Chloride 1,000 mls @ 999 mls/hr 07/07/22 23:30 07/07/22 23:40 Ns IV 07/08/22 00:30 999 mls/hr .Q1H1M DAMIÁN Administration Ondansetron HCl 4 mg 07/07/22 23:17 07/07/22 23:40 Ondansetron Hcl 4 Mg/2 Ml Vial IVPUSH 07/07/22 23:18 4 mg ONCE ONE Administration Medical Decision Making Medical Decision Making [facility] Narrative: [id number]: 72-year-old female with multiple episodes of nausea and vomiting, she is status post appendectomy and has no other intra-abdominal surgeries. She did have a bowel movement during 1 of her episodes of vomiting. On review of all investigations I do not appreciate any leukocytosis or evidence to suggest a UTI, will proceed with CT scan of the abdomen On review of the workup in its entirety my interpretation is that patient likely became mildly dehydrated, developed some dizziness secondary to this, she is otherwise nonfocal and suspect a mild gastroenteritis. Patient's tachycardia has resolved with IV fluids, she received Zofran and is tolerating oral intake and is otherwise discharged home in stable condition. On re-evaluation, patient states that she is feeling much better. Differential Diagnosis Please see the discussion above Lab Data Please see the discussion above 07/07/22 21:25 07/07/22 21:25 Labs: Lab Results 07/07/22 07/07/22 07/07/22 Range/Units 21:24 21:25 21:25 WBC 9.9 (4.8-10.8) X10*3/uL RBC 4.50 (4.20-5.50) X10*6/uL Hgb 13.2 (12.0-16.0) g/dl Hct 41.2 (37.0-47.0) % MCV 91.6 (80.0-98.0) fL MCH 29.3 (27.0-33.0) pg MCHC 32.0 (31.0-35.0) g/dl RDW 13.3 (11.0-16.0) % Plt Count 219 (160-400) X10*3/uL MPV 9.7 (9.4-12.3) fL Immature Gran % (Auto) 0.4 (0.0-0.4) % Neut % (Auto) 89.8 H (45-73) % Lymph % (Auto) 4.1 L (20-40) % [place] % (Auto) 4.7 (2-11) % Eos % (Auto) 0.6 (0-4) % Baso % (Auto) 0.4 (0-2) % Lymph # (Auto) 0.4 L (1.2-4.9) X10*3/uL [place] # (Auto) 0.5 (0.1-1.2) X10*3/uL Eos # (Auto) 0.1 (0.0-0.4) X10*3/uL Baso # (Auto) 0.0 (0.0-0.2) X10*3/uL Abs Immat Gran (auto) 0.04 H (0.00-0.03) X10*3/uL Absolute Neuts (auto) 8.9 H (2.0-8.3) x10*3/uL Absolute Nucleated RBC 0.000 (0.0-0.012) X10*3/uL Nucleated RBC % (auto) 0.0 (0.0-0.2) /100WBC Sodium 138 (135-145) mmol/L Potassium 4.0 (3.3-5.1) mmol/L Chloride 105 (96-108) mmol/L Carbon Dioxide 23 (22-29) mmol/L Anion Gap 14 (12-20) BUN 19 H (9-16) mg/dL Creatinine 0.70 (0.5-1.4) mg/dL Estim Creat Clear Calc 81.9 Estimated GFR > 60 Random Glucose 177 H (60-115) mg/dL Calcium 8.6 D (8.4-10.2) mg/dL Troponin I High Sens 11.7 (<3.5-17.0) ng/L Lipase 34 (8-78) U/L Urine Color Urine Appearance Urine pH (5.0-9.0) Ur Specific [place] (1.005-1.025) Urine Protein (Neg-Trace) mg/dL Urine Glucose (UA) (Negative) mg/dL Urine Ketones (Negative) mg/dL Urine Blood (Negative) Urine Nitrite (Negative) Ur Leukocyte Esterase (Negative) COVID-19 (SELINA) (Negative) COVID-19 Clin Com 07/07/22 07/07/22 Range/Units 22:40 23:58 WBC (4.8-10.8) X10*3/uL RBC (4.20-5.50) X10*6/uL Hgb (12.0-16.0) g/dl Hct (37.0-47.0) % MCV (80.0-98.0) fL MCH (27.0-33.0) pg MCHC (31.0-35.0) g/dl RDW (11.0-16.0) % Plt Count (160-400) X10*3/uL MPV (9.4-12.3) fL Immature Gran % (Auto) (0.0-0.4) % Neut % (Auto) (45-73) % Lymph % (Auto) (20-40) % [place] % (Auto) (2-11) % Eos % (Auto) (0-4) % Baso % (Auto) (0-2) % Lymph # (Auto) (1.2-4.9) X10*3/uL [place] # (Auto) (0.1-1.2) X10*3/uL Eos # (Auto) (0.0-0.4) X10*3/uL Baso # (Auto) (0.0-0.2) X10*3/uL Abs Immat Gran (auto) (0.00-0.03) X10*3/uL Absolute Neuts (auto) (2.0-8.3) x10*3/uL Absolute Nucleated RBC (0.0-0.012) X10*3/uL Nucleated RBC % (auto) (0.0-0.2) /100WBC Sodium (135-145) mmol/L Potassium (3.3-5.1) mmol/L Chloride (96-108) mmol/L Carbon Dioxide (22-29) mmol/L Anion Gap (12-20) BUN (9-16) mg/dL Creatinine (0.5-1.4) mg/dL Estim Creat Clear Calc Estimated GFR Random Glucose (60-115) mg/dL Calcium (8.4-10.2) mg/dL Troponin I High Sens (<3.5-17.0) ng/L Lipase (8-78) U/L Urine Color Yellow Urine Appearance Clear Urine pH 5.5 (5.0-9.0) Ur Specific [place] >= 1.030 H (1.005-1.025) Urine Protein Trace (Neg-Trace) mg/dL Urine Glucose (UA) Negative (Negative) mg/dL Urine Ketones 15 (Negative) mg/dL Urine Blood Negative (Negative) Urine Nitrite Negative (Negative) Ur Leukocyte Esterase Negative (Negative) COVID-19 ([facility]INA) Negative (Negative) COVID-19 Clin Com See Note Independent Interpretation I performed an independent interpretation of an: EKG Interpretation: Sinus tachycardia, HR-121, no STEMI, SD/QRS/QTC is within normal limits. Radiology Impression Radiologist Impression: My interpretation is in agreement with radiology's impression of the imaging studies. External Record Review External record reviewed: Outpatient record and Prior outpatient labs Chronic Conditions Patient?s care impacted by: Diabetes Discharge Plan Discharge Clinical Impression: Mild dehydration, Gastroenteritis Patient Disposition: Home, Self-Care Instructions: Dehydration (ED), Gastroenteritis (ED) Additional Instructions: 1. Reanudar todos los medicamentos caseros seg?n lo prescrito. 2. Contin?e bebiendo ba agua. 3. Alvaro un seguimiento con hines proveedor de atenci?n primaria llamando a la oficina por la ma?jacey y programando octavia saundra para octavia reevaluaci?n. Regrese a la german de emergencias si los s?ntomas empeoran. 1. Resume all home medications as prescribed. 2. Continue to drink plenty of water. 3. Follow-up with your primary care provider by calling the office in the morning and setting up an appointment for re-evaluation. Return to the ER for any worsening symptoms. Prescriptions: No Action omeprazole 20 mg capsule,delayed release(DR/EC) 20 mg PO DAILY polyethylene glycol 3350 17 gram/dose powder PO tizanidine 2 mg capsule 2 mg PO TID PRN (Reason: muscle spasm) ibuprofen 800 mg tablet 800 mg PO DAILY PRN (Reason: pain) amitriptyline 25 mg tablet 50 mg PO BEDTIME glipizide 5 mg tablet 5 mg PO DAILY Linzess 145 mcg capsule 145 mcg PO QAM gabapentin 300 mg capsule 300 - 600 mg PO BEDTIME atorvastatin 20 mg tablet 20 mg PO DAILY lactulose 10 gram/15 mL solution PO Referrals: Richelle James MD [Primary Care Provider] - Print Language: French
[2022-07-07] MEDS: 0.9 % Sodium Chloride 1,000 ML 999 ML IV (23:40)
[2022-07-07] MEDS: ondansetron HCL 4 MG/2 ML VIAL IVPUSH (23:40)
[2022-07-08 00:22] LABS: COVID-19 Test Negative (Negative); IDNOW Serial# 16C4AD1C
[2022-07-08 01:15] VITALS: BP 113/72; PULSE 107; RESP 16; TEMP 36.7; O2SAT 96
== END 2022-07-08 02:01 | disposition home or self-care (01) ==
PROVIDERS: Emergency Provider Student in an Organized Health Care Education/Training Program; PCP Internal Medicine
DX: K52.9 Noninfective gastroenteritis and colitis, unspecified (principal); E86.0 Dehydration; R00.0 Tachycardia, unspecified; Z20.822 Contact with and (suspected) exposure to COVID-19; E11.9 Type 2 diabetes mellitus without complications; E78.5 Hyperlipidemia, unspecified; E66.9 Obesity, unspecified; Z68.42 Body mass index [BMI] 45.0-49.9, adult; Z79.02 Long term (current) use of antithrombotics/antiplatelets; Z79.899 Other long term (current) drug therapy
CPT/HCPCS: 36415; 74176; 80048; 81003; 83690; 84484; 85025; 87635; 93005; 96374; 99284; 99285; J2405

== ENCOUNTER → 2022-07-16 12:04 | Outpatient (BNVA) | payer OTHER, SELFPAY | PROVIDERS: PCP Internal Medicine; Visit Provider Psychiatry & Neurology Neurology | DX: F09 Unspecified mental disorder due to known physiological condition (principal); G47.33 Obstructive sleep apnea (adult) (pediatric) | CPT/HCPCS: 99212 ==

== ENCOUNTER → 2022-08-05 12:50 | Outpatient (BNVA) | payer OTHER, SELFPAY | PROVIDERS: PCP Internal Medicine; Visit Provider Physician Assistant ==

== ENCOUNTER → 2022-08-20 10:37 | Outpatient (BNVA) | payer OTHER, SELFPAY | PROVIDERS: PCP Internal Medicine; Visit Provider Physician Assistant Surgical | DX: E66.9 Obesity, unspecified (principal); G47.33 Obstructive sleep apnea (adult) (pediatric); F32.A Depression, unspecified; E78.5 Hyperlipidemia, unspecified; M19.90 Unspecified osteoarthritis, unspecified site; M79.7 Fibromyalgia; G47.00 Insomnia, unspecified; E11.9 Type 2 diabetes mellitus without complications; F09 Unspecified mental disorder due to known physiological condition; Z68.42 Body mass index [BMI] 45.0-49.9, adult | CPT/HCPCS: 99202 ==

== ENCOUNTER 2022-11-02 15:07 | Outpatient (AMB) | payer OTHER, SELFPAY ==
[2022-11-02 15:09] VITALS: BP 134/68; PULSE 85; O2SAT 97; BMI 44.9
--- NOTE | 2022-11-02 15:09 | A.OFFVIS_ITS ---
Intake Vital Signs 11/02/22 15:09 Height 4 ft 11 in Weight 222 lb 2 oz BMI 44.9 BP 134/68 Blood Pressure Location Rt brachial Position Sitting Pulse 85 Pulse Source Pulse Oximeter Pulse Oximetry (%) 97 Oxygen Delivery Method Room Air Intake Visit Reasons: 3m follopw up Dementia-CONFIRMED Intake Note: Pt presents as a 3 month f/u for Dementia. Development Planner Required: No Allergies No Known Allergies Allergy (Verified 11/02/22 15:13) Medication List - Last Reconciled 11/02/22 by Jenny Jackman MD amitriptyline 50 mg PO BEDTIME atorvastatin 20 mg PO DAILY gabapentin 300 - 600 mg PO BEDTIME glipizide 5 mg PO DAILY ibuprofen 800 mg PO DAILY PRN lactulose mL PO linaclotide (Linzess) 145 mcg PO QAM omeprazole 20 mg PO DAILY polyethylene glycol 3350 grams PO tizanidine 2 mg PO TID PRN HPI HPI Comments History of Present Illness Details 72y/o female comes for follow up of memory issues. He rmemory is worse now she is accompanied by her daughter who helps with history. Her daughter started noticing short term memory for few years now but worsening in the past 6 mths.Her sleep study was c/w sleep apnea AHI 10/hr O2 anali 77%. she is not using her CPAP . MRI shows atrophy and white matter changes Her weight has increased as she forgets about eating and may overeat. she feels her memory is worse. she misplaces things, she left the stove on once in her daughters house once , repeating conversations, repeating questions , short term memory issues. she can use her phone , remote without issues. she lives alone but her daughter take care of her finances. she denies depression or anxiety. she sleeps Ok, has loud snoring and has daytime fatigue. [facility] Medical History Cervical disc disease Cognitive disorder COVID Depression Diabetes DJD (degenerative joint disease) Fibromyalgia Hyperlipidemia Hypersomnia Insomnia Lung nodule Obesity (BMI 35.0-39.9 without comorbidity) Obstructive sleep apnea Snoring Spinal stenosis Thyroid nodule Surgical History History of bunionectomy Hx of cervical spine surgery Hx of shoulder surgery Status post right knee replacement Family History Sister Diabetes Social History (Updated 11/02/22 @ 15:14 by Aditi Rosales CMA) Alcohol intake: never Patient Tobacco Use Status: Never used Tobacco Use of substances other than those prescribed or required for medical reasons: No Physical Exam Vital Signs: Last Vital Signs Pulse 85 11/02/22 15:09 BP 134/68 11/02/22 15:09 Pulse Ox 97 11/02/22 15:09 Oxygen Delivery Method Room Air 11/02/22 15:09 BMI result Body Mass Index 44.9 Const General: cooperative, healthy appearing and comfortable Nutritional Appearance: obese Orientation/consciousness: patient oriented x3 Limitations: physical limitations HEENT Head: Yes normal to inspection and Yes normocephalic Neck Other: mild restricted range of motion Neuro General: patient oriented x3, tone normal, moves all extremities and no focal motor deficits Gait exam (Neuro): Normal gait present and Antalgic gait present Motor exam (neuro): 5/5 motor strength present throughout Coordination: [id number] test normal Psych Appearance: grossly normal Orientation What is the (year) (season) (date) (day) (month)?: year, season, day and month Where are we (state) (county) (town or city) (hospital) (floor)?: state, town or city and hospital/clinic Registration Name of 3 unrelated objects clearly and slowly, then ask patient to repeat all 3 of them. (1st repeat determines score. Make sure they can repeat all three): object 1, object 2 and object 3 Attention & Calculation (CHOOSE ONE) Spell WORLD backwards (DLROW): 4 letters Recall Ask patient to repeat the 3 items from question #3.: object 1 Language Show patient a wristwatch & ask what it is. Repeat for pencil.: watch and pencil Ask the patient to repeat the phrase 'No ifs, ands, or buts' after you.: correct Ask the patient to 'take a piece of paper with their right hand' 'fold paper in half' 'place paper on floor': take paper in right hand, fold paper in half and place paper on floor Print the sentence 'CLOSE YOUR EYES' on a piece. If patient actually closes eyes then score.: followed written direction Give patient a blank piece of paper & ask to write a sentence. Score if it contains a noun & verb.: sentence contains subject and verb Ask patient to copy figure of intersecting pentagons exactly. Score if all 10 angles & 2 intersects are included.: all 10 angles present & 2 are intersected Score Score: 24 Assessment & Plan Assessment & Plan (1) Cognitive disorder: Comment: vascular cognitive impairment , dementia Code(s): F09 - Unspecified mental disorder due to known physiological condition (2) Obstructive sleep apnea: Code(s): G47.33 - Obstructive sleep apnea (adult) (pediatric) Plan MRI brain results reviewed Check TSH VIt B 12 ESR CBC CMP -mild increase in ESR 36 Sleep study results reviewed -patient declines CPAP Cognitive exercises, increase physical activity risk factor reduction - good control of diabetes, HTN , obesity I will trial her on aricept 5mg qd for 4 weeks and 10mg qd Medications: New donepezil (Aricept) 1/2 tab once a day for 4 weeks and then 1 tab once a day 10 mg PO BEDTIME 30 tabs 3RF hydroxyzine HCl 10 mg PO BEDTIME 30 tabs 0RF Coding Level of Care Code Est Pt Level 4 (40110) Diagnoses Cognitive disorder F09 Obstructive sleep apnea G47.33
== END 2022-11-02 15:46 | disposition home or self-care (01) ==
PROVIDERS: Visit Provider Psychiatry & Neurology Neurology
DX: F01.518 Vascular dementia, unspecified severity, with other behavioral disturbance (principal); R41.89 Other symptoms and signs involving cognitive functions and awareness; G47.33 Obstructive sleep apnea (adult) (pediatric)
CPT/HCPCS: 99214

== ENCOUNTER → 2022-11-02 15:07 | Outpatient (BNVA) | payer OTHER, SELFPAY | PROVIDERS: Visit Provider Psychiatry & Neurology Neurology | DX: F09 Unspecified mental disorder due to known physiological condition (principal); G47.33 Obstructive sleep apnea (adult) (pediatric); Z99.89 Dependence on other enabling machines and devices; Z91.148 Patient's other noncompliance with medication regimen for other reason | CPT/HCPCS: 99212 ==

== ENCOUNTER 2022-11-08 10:28 | Emergency (ER) | payer OTHER, SELFPAY ==
--- NOTE | ~2022-11-08 | CT_ITS ---
Examination: CT brain and CT cervical spine without contrast. CLINICAL INDICATION: Neck pain, dementia and fall. Headache. COMPARISON: None. TECHNIQUE: 5 mm thin axial and reformatted 2 mm thin sagittal and coronal images of brain were obtained without contrast.. Subsequently axial 3 mm thin and reformatted 2 mm thin sagittal and coronal images of cervical spine were obtained without contrast. DLP 1337. This CT examination was performed using dose optimization technique as appropriate, variously including the following: Automated exposure control Adjustment of MA and/or KV according to patient size(this includes techniques or standardized protocols for targeted exams where dose is matched to indication/reason for exam; extremities or head. Use of iterative reconstruction techniques. FINDINGS: Brain: There is no acute intra-axial, extra-axial bleed, masses or midline shift. There is no acute infarction in evolution. The ayon to white matter differentiation is maintained normal. The lateral ventricles are symmetrical in size and configuration without enlargement. Mild periventricular hypodensity seen in bilateral frontal lobes cerebral hemispheres suggestive of chronic small vessel ischemic changes. There is interhemispheric falx calcification. Bone windows reveal no calvarial abnormality. Bilateral paranasal sinuses and mastoid air cells are well-aerated. Bone windows reveal no calvarial abnormality. There is no scalp soft tissue abnormality. Bilateral paranasal sinuses and mastoid air cells are well-aerated. Bilateral optic globe, optic nerve and the bony orbits are intact. No scalp soft tissue swelling seen. Cervical spine: There is mild straightening of cervical lordosis. The vertebral heights and alignment is normal. There is low profile disc prosthesis with ventral hardware for C6-C7 fusion.. Rest of the disc heights are normal. The craniovertebral junction and C1-C2 alignment is normal. No visible acute fracture, dislocation or subluxation seen. The prevertebral and paravertebral soft tissues are normal. The airway is widely patent. The lung apices are clear. CT/CT cervical spine wo IV con IMPRESSION: No acute intracranial process seen. C6-C7 disc fusion with Low Profile prostheses and ventral hardware for stability. There is mild straightening of the cervical lordosis likely positional or postsurgical changes. No acute fracture or dislocation seen.
[2022-11-08 10:41] VITALS: BP 154/89; PULSE 114; RESP 16; TEMP 37.4; O2SAT 97; BMI 45.0
--- NOTE | 2022-11-08 10:43 | ED_ITS ---
HPI - General Adult General Chief complaint: Neck Pain/Injury Stated complaint: neck pain Time Seen by Provider: 11/08/22 10:39 Source: patient and family (Daughter) Mode of arrival: ambulatory Limitations: language barrier History of Present Illness HPI narrative: Patient is a 72-year-old female with history of cognitive disorder, DM, DEBBIE, HLD, DJD, spinal stenosis, fibromyalgia, cervical disc disease presenting to the emergency department with complaint of neck pain, left worse than right since this morning. Daughter states that family was with patient throughout the day yesterday until 6:00 p.m. at which time the daughter went to the patient's home and placed her in bed. Daughter states that when she called the patient this morning the patient was complaining of severe neck pain and headache. Patient denies any visual changes. Daughter states that patient denies any fall or other trauma, however, patient was alone throughout the night. Daughter also states that the patient forgot to take her medications this morning. Patient denies any other complaint of pain. Denies back pain. Denies any numbness or tingling to extremities. Denies fevers. MD complaint: neck pain Onset (ago): hour(s) Location: neck Radiation: non-radiation Severity: severe Quality: aching Pain Consistency: constant Relieving factors: none Exacerbating factors: movement Associated symptoms: headaches Treatments prior to arrival: none Related Data Home Medications Medication Instructions Recorded Confirmed gabapentin 300 mg capsule 300 - 600 mg PO BEDTIME 04/15/22 11/02/22 glipizide 5 mg tablet 5 mg PO DAILY 04/15/22 11/02/22 ibuprofen 800 mg tablet 800 mg PO DAILY PRN pain 04/15/22 11/02/22 linaclotide 145 mcg capsule 145 mcg PO QAM 04/15/22 11/02/22 (Linzess) omeprazole 20 mg capsule,delayed 20 mg PO DAILY 04/15/22 11/02/22 release polyethylene glycol 3350 17 g PO 04/15/22 11/02/22 gram/dose oral powder tizanidine 2 mg capsule 2 mg PO TID PRN muscle spasm 04/15/22 11/02/22 atorvastatin 20 mg tablet 20 mg PO DAILY 04/24/22 11/02/22 lactulose 10 gram/15 mL oral ml PO 04/24/22 11/02/22 solution Previous Rx's Medication Instructions Recorded donepezil 10 mg tablet (Aricept) 10 mg PO BEDTIME #30 tabs 11/03/22 hydroxyzine HCl 10 mg tablet 10 mg PO BEDTIME #30 tabs 11/03/22 cyclobenzaprine 5 mg tablet 5 mg PO TID PRN muscle spasm #10 11/08/22 tabs Allergies Allergy/AdvReac Type Severity Reaction Status Date / Time No Known Allergies Allergy Verified 11/02/22 15:13 Review of Systems Review of Systems: As per HPI. Yes all other systems are reviewed and are negative Constitutional: Constitutional: Reports as per HPI [facility] Past Medical History Medical History Cervical disc disease Cognitive disorder COVID Depression Diabetes DJD (degenerative joint disease) Fibromyalgia Hyperlipidemia Hypersomnia Insomnia Lung nodule Obesity (BMI 35.0-39.9 without comorbidity) Obstructive sleep apnea Snoring Spinal stenosis Thyroid nodule Surgical History History of bunionectomy Hx of cervical spine surgery Hx of shoulder surgery Status post right knee replacement Family History Family History Sister Diabetes Social History Social History (Updated 11/02/22 @ 15:14 by Aditi Rosales CMA) Alcohol intake: never Patient Tobacco Use Status: Never used Tobacco Advance Directives: Yes Advance Directives Information Provided: Yes Advance Directives on File: No Physical Exam ED Vital Signs: Vital Signs - 24 hr 11/08/22 10:41 Temperature 99.3 F Pulse Rate 114 H Respiratory Rate 16 Blood Pressure 154/89 H Pulse Oximetry 97 Oxygen Delivery Method Room Air BMI result Body Mass Index 45.0 Vital signs have been reviewed and appear to be correct. Blood pressure elevated. Heart rate mildly tachycardic. Respiratory rate normal. Temperature normal. Oxygen saturation normal. Const General: cooperative, healthy appearing and no acute distress Orientation/consciousness: oriented to person, oriented to place, oriented to time and patient oriented x3 Limitations: no limitations HENMT Head: Yes normocephalic and Yes atraumatic Ears: external ears normal General nose exam: Normal external nose present Face and sinus: Yes face symmetric Mouth: oropharynx normal and moist mucous membranes Throat: Yes uvula midline Eyes Pupils: Equal, round and reactive pupils present Neck Neck: Yes normal visual inspection and Yes supple Resp Effort & Inspection: normal respiratory effort and able to speak in complete sentences Auscultation: clear to auscultation bilaterally Cardio Rate: regular rate Rhythm: regular rhythm Heart sounds: S1 normal heart sound present and S2 normal heart sound present GI Palpation (GI): Soft to palpation and nontender Auscultation: normoactive bowel sounds General: Yes no CVA tenderness Back/Spine/Pelvis Back: no CVA tenderness Cervical Spine: normal cervical lordosis, cervical ROM normal, cervical muscular tenderness, pain with cervical ROM, No Cervical spine tenderness and No step off deformity Thoracic/Lumbar Spine: thoracic and lumbar spine normal to inspection, No thoracic spinal tenderness and No lumbar spinal tenderness Skin General skin exam: elasticity normal and turgor normal Neuro General: oriented to person, oriented to place, oriented to time, patient oriented x3, moves all extremities, no focal motor deficits and CN's II-XI intact bilaterally Cranial nerves: Yes Equal, round and reactive pupils present Extrem General: Yes full ROM, Yes no pedal edema and Yes no calf tenderness Psych Mental Status: mental status grossly normal Affect: normal affect Thought process: Normal thought process present Medications Administered Discontinued Medications Generic Name Dose Route Start Last Admin Trade Name Freq PRN Reason Stop Dose Admin Acetaminophen 650 mg 11/08/22 10:50 11/08/22 11:38 Acetaminophen 325 Mg Tablet PO 11/08/22 10:51 650 mg ONCE ONE Administration Medical Decision Making Medical Decision Making [facility] Narrative: Patient is a 72-year-old female with history of cognitive disorder, DM, DEBBIE, HLD, DJD, spinal stenosis, fibromyalgia, cervical disc disease presenting to the emergency department with complaint of neck pain, left worse than right since this morning. On exam patient is awake, A+Ox3, VS WNL, afebrile, normal neurological exam without focal deficits, lateral cervical muscle tenderness and pain with lateral rotation, no midline tenderness or stepoffs. Given reported symptoms and physical exam findings, initial differential includes ICH, skull fracture, cervical spinal fracture, exacerbation of cervical disc disease, muscl e strain. CT notable for no acute intracranial pathology, no cervical fracture. My interpretation is in agreement with the radiologist's interpretation. Feels symptoms are likely related to muscle strain. Will prescribe short course of cyclobenzaprine. Instructed patient to follow-up with her primary care provider. Discussed with daughter that patient should not be allowed access to the cyclobenzaprine if she is home alone. Daughter states she will keep the cyclobenzaprine with her. Return precautions discussed at bedside. Patient and daughter verbalized understanding of an agreement with plan. Differential Diagnosis Differential Diagnoses: The differential diagnosis associated with the presentation includes As per MDM. Admission/Observation Consideration of admission/observation: Escalation of care including admission/observation considered Independent Interpretation I performed an independent interpretation of an: CT Scan Interpretation: No acute intracranial abnormality, no cervical fracture Radiology Impression Discussion of test interpretation with radiology: I have reviewed the radiologi st's reading. Radiologist Impression: CT/CT head/brain wo IV con IMPRESSION: No acute intracranial process seen. ? C6-C7 disc fusion with Low Profile prostheses and ventral hardware for stability. There is mild straightening of the cervical lordosis likely positional or postsurgical changes. No acute fracture or dislocation seen. Independent Historian Clinical information obtained from an independent historian. History obtained from or confirmed by: Other (daughter) External Record Review External record reviewed: Inpatient record, Office record and Outpatient record Prescription Management I considered prescription management with: Other (cyclobenzaprine) Chronic Conditions Patient?s care impacted by: Other (cognitive impairment) Discharge Plan Discharge Clinical Impression: Cervical muscle strain Patient Disposition: Home, Self-Care Instructions: Cervical Strain (DC) Additional Instructions: You were evaluated in the emergency department today for neck pain. Your evaluation did not show signs of medical conditions requiring emergent intervention at this time. We recommended that you use Tylenol per package directions every 6 hours as needed for pain. You have been prescribed a muscle relaxer which you may take every 8 hours as needed for spasms. Please schedule an appointment for follow-up with your primary care physician this week for further evaluation of your symptoms. Return to the emergency department if you experience worsening neck pain, worsening headache, changes in vision, new numbness or tingling to your arms, difficulty walking, fevers, numbness, tingling, incontinence, groin numbness or tingling, or any other concerning symptoms. Prescriptions: New cyclobenzaprine 5 mg tablet 5 mg PO TID PRN (Reason: muscle spasm) Qty: 10 0RF No Action donepezil [Aricept] 10 mg tablet 10 mg PO BEDTIME Qty: 30 3RF Rx Instructions: 1/2 tab once a day for 4 weeks and then 1 tab once a day hydroxyzine HCl 10 mg tablet 10 mg PO BEDTIME Qty: 30 0RF omeprazole 20 mg capsule,delayed release(DR/EC) 20 mg PO DAILY polyethylene glycol 3350 17 gram/dose powder PO tizanidine 2 mg capsule 2 mg PO TID PRN (Reason: muscle spasm) ibuprofen 800 mg tablet 800 mg PO DAILY PRN (Reason: pain) glipizide 5 mg tablet 5 mg PO DAILY Linzess 145 mcg capsule 145 mcg PO QAM gabapentin 300 mg capsule 300 - 600 mg PO BEDTIME atorvastatin 20 mg tablet 20 mg PO DAILY lactulose 10 gram/15 mL solution PO
[2022-11-08] MEDS: Acetaminophen 325 MG TABLET 650 MG PO (11:38)
[2022-11-08] MEDS: Cyclobenzaprine HCl 5 MG TABLET PO (12:33)
== END 2022-11-08 12:33 | disposition home or self-care (01) ==
PROVIDERS: Emergency Provider Emergency Medicine; PCP Internal Medicine
DX: M54.2 Cervicalgia (principal); R51.9 Headache, unspecified; Z79.899 Other long term (current) drug therapy
CPT/HCPCS: 70450; 72125; 99283

== ENCOUNTER 2023-03-10 09:30 | Outpatient (AMB) | payer OTHER, SELFPAY ==
--- NOTE | 2023-03-10 09:38 | A.OFFVIS_ITS ---
Intake Vital Signs 03/10/23 09:39 Height 4 ft 11 in Weight 218 lb 6 oz BMI 44.1 BP 150/84 H Blood Pressure Location Rt brachial Position Sitting Respiration 16 Pulse 88 Pulse Source Pulse Oximeter Pulse Oximetry (%) 98 Oxygen Delivery Method Room Air Intake Visit Reasons: 4m follow up Dementia-Confirmed Intake Note: Pt presents to the office for a 4 month follow up for dementia. Retail Client Solutions Analyst Required: No Allergies No Known Allergies Allergy (Verified 03/10/23 09:38) HPI HPI Comments History of Present Illness Details 72y/o female comes for follow up of verenice ry issues. Her memory is worse now History form last visit-she is accompanied by her daughter who helps with history. Her daughter started noticing short term memory for few years now but worsening in the past 6 mths.Her sleep study was c/w sleep apnea AHI 10/hr O2 anali 77%. she is not using her CPAP . MRI shows atrophy and white matter changes Her weight has increased as she forgets about eating and may overeat. she feels her memory is worse. she misplaces things, she left the stove on once in her daughters house once , repeating conversations, repeating questions , short term memory issues. she can use her phone , remote without issues. she lives alone but her daughter take care of her finances. she denies depression or anxiety. she sleeps Ok, has loud snoring and has daytime fatigue. [facility] Medical History (Updated 11/09/22 @ 00:01 by Les Daemon) Obstructive sleep apnea Hypersomnia Snoring Cognitive disorder Obesity (BMI 35.0-39.9 without comorbidity) Depression Hyperlipidemia DJD (degenerative joint disease) Spinal stenosis Fibromyalgia Insomnia Diabetes COVID Thyroid nodule Lung nodule Cervical disc disease Surgical History (Updated 03/10/23 @ 09:48 by Nikki Angle CMA) Hx of cataract surgery Status post right knee replacement Hx of cervical spine surgery History of bunionectomy Hx of shoulder surgery Family History Sister Diabetes Social History Alcohol intake: never Patient Tobacco Use Status: Never used Tobacco Physical Exam Vital Signs: Last Vital Signs Pulse 88 03/10/23 09:39 Resp 16 03/10/23 09:39 BP 150/84 H 03/10/23 09:39 Pulse Ox 98 03/10/23 09:39 Oxygen Delivery Method Room Air 03/10/23 09:39 BMI result Body Mass Index 44.1 Const General: cooperative, healthy appearing and comfortable Nutritional Appearance: obese Orientation/consciousness: patient oriented x3 Limitations: physical limitations HEENT Head: Yes normal to inspection and Yes normocephalic Neck Other: mild restricted range of motion Neuro General: patient oriented x3, tone normal, moves all extremities and no focal motor deficits Gait exam (Neuro): Normal gait present and Antalgic gait present Motor exam (neuro): 5/5 motor strength present throughout Coordination: [id number] test normal Psych Appearance: grossly normal Assessment & Plan Assessment & Plan (1) Cognitive disorder: Comment: vascular cognitive impairment , dementia Code(s): F09 - Unspecified mental disorder due to known physiological condition (2) Obstructive sleep apnea: Code(s): G47.33 - Obstructive sleep apnea (adult) (pediatric) Plan Refer to dentist for oral device for sleep apnea Sleep study results reviewed -patient declines CPAP Cognitive exercises, increase physical activity risk factor reduction - good control of diabetes, HTN , obesity Aricept 10mg qd I will start her on memantine XR 7mg qd and titrate upto 28 mg qd Orders: Referrals Dentistry Referral G47.33 - Obstructive sleep apnea (adult) (pediatric) Medications: New memantine 7 mg PO DAILY 30 ea 0RF Coding Level of Care Code Est Pt Level 4 (74944) Diagnoses Cognitive disorder F09 Obstructive sleep apnea G47.33
[2023-03-10 09:39] VITALS: BP 150/84; PULSE 88; RESP 16; O2SAT 98; BMI 44.1
== END 2023-03-10 10:07 | disposition home or self-care (01) ==
PROVIDERS: PCP Internal Medicine; Visit Provider Psychiatry & Neurology Neurology
DX: F01.50 Vascular dementia, unspecified severity, without behavioral disturbance, psychotic disturbance, mood disturbance, and anxiety (principal); G47.33 Obstructive sleep apnea (adult) (pediatric)
CPT/HCPCS: 99214

== ENCOUNTER → 2023-03-10 09:30 | Outpatient (BNVA) | payer OTHER, SELFPAY | PROVIDERS: PCP Internal Medicine; Visit Provider Psychiatry & Neurology Neurology | DX: F09 Unspecified mental disorder due to known physiological condition (principal); G47.33 Obstructive sleep apnea (adult) (pediatric) | CPT/HCPCS: 99212 ==

== ENCOUNTER 2023-04-09 12:58 | Outpatient (AMB) | payer OTHER, SELFPAY ==
--- NOTE | 2023-04-09 13:30 | A.OFFVIS_ITS ---
Intake Intake Visit Reasons: Lower back pain Rehab Department Manager Required: Yes Allergies No Known Allergies Allergy (Verified 03/10/23 09:38) PFSH Medical History (Updated 11/09/22 @ 00:01 by Les Dupont) Obstructive sleep apnea Hypersomnia Snoring Cognitive disorder Obesity (BMI 35.0-39.9 without comorbidity) Depression Hyperlipidemia DJD (degenerative joint disease) Spinal stenosis Fibromyalgia Insomnia Diabetes COVID Thyroid nodule Lung nodule Cervical disc disease Surgical History (Updated 03/10/23 @ 09:48 by Nikki Angel CMA) Hx of cataract surgery Status post right knee replacement Hx of cervical spine surgery History of bunionectomy Hx of shoulder surgery Family History Sister Diabetes Social History Alcohol intake: never Patient Tobacco Use Status: Never used Tobacco Assessment & Plan Assessment & Plan (1) Spinal stenosis: Code(s): M48.00 - Spinal stenosis, site unspecified Plan Mrs Obrien is here in follow-up today. She is a patient known to us from our [facility] practice, who underwent a bilateral L3-4 laminotomy, right L4 foraminotomy and right L4-[address] House 2 years ago. She did well after that surgery. Her leg pain improved significantly. She also ended up having a C6-7 anterior cervical diskectomy and fusion for cervical myelopathy in 2021 as well. She also recovered from that without any incident. About a month ago or so she started to notice pain along the right low back into her right buttock going into her right posterior thigh and her outer calf. It started rather abruptly and has been quite intense only getting worse. She trialed ibuprofen and Tylenol. She underwent a cortisone injection at Dr. Delgado's office. The notes suggest she had an L5-S1 epidural and did get relief from that for a few days. The patient does confirm with her daughter who is here with her today that it did indeed help. At this point she is having a lot of difficulty sitting, walking and sleeping. She underwent an MRI showing multiple postsurgical changes at the L3 and L4 level with persistent foraminal narrowing at the L2 foramen and the L5 foramen. On my exam, she does not demonstrate any weakness but she is quite uncomfortable, she has positive straight leg raise at about 15 degrees. She grimaces when trying to get out of a chair. I reviewed the MRI from [facility] myself and it shows postsurgical changes at L3-4 and L4-5, with persistent lateral recess stenosis on the right at L4-5 as well as right L5 foraminal narrowing which I would rate as severe. There may be a lateral disc herniation here. I suspect her symptoms are coming from this L4-5 and right L5 foraminal area. The fact that she has already had surgery in this area and the symptoms are relapsing is concerning. She is morbidly obese, diabetic and in the setting of previous surgery can make doing a simple surgery significantly more difficult. I will review her images with Dr. House and get back to the patient and her daughter with a final plan. Total amount of time spent in this visit was 20 minutes in discussion of symptoms, lumbar imaging results and subsequent plan of care Willie House MD,PhD [facility] Coding Level of Care Code Est Pt Level 3 (42552) Diagnoses Spinal stenosis M48.00
== END 2023-04-09 14:02 | disposition home or self-care (01) ==
PROVIDERS: PCP Internal Medicine; Referring Provider Physician Assistant; Visit Provider Physician Assistant
DX: M48.00 Spinal stenosis, site unspecified (principal)
CPT/HCPCS: 99213

== ENCOUNTER → 2023-04-09 12:58 | Outpatient (BNVA) | payer OTHER, SELFPAY | PROVIDERS: PCP Internal Medicine; Visit Provider Physician Assistant | DX: M48.00 Spinal stenosis, site unspecified (principal) | CPT/HCPCS: 99212 ==

== ENCOUNTER 2023-08-12 11:57 | Outpatient (AMB) | payer OTHER, SELFPAY ==
[2023-08-12 12:37] VITALS: BP 120/80; PULSE 79; O2SAT 97; BMI 43.3
--- NOTE | 2023-08-12 12:37 | A.OFFVIS_ITS ---
Vital Signs 08/12/23 12:37 Height 4 ft 11 in Weight 214 lb 8 oz BMI 43.3 BP 120/80 Blood Pressure Location Rt brachial Position Sitting Pulse 79 Pulse Source Pulse Oximeter Pulse Oximetry (%) 97 Oxygen Delivery Method Room Air Intake Visit Reasons: 6 mnts f/u appt Electrical Controls Assembler Required: No Accompanied by: Child Allergies No Known Allergies Allergy (Verified 08/12/23 12:41) Medication List - Last Reconciled 08/12/23 by Jenny Jackman MD atorvastatin 20 mg PO DAILY cyclobenzaprine 5 mg PO TID PRN donepezil 10 mg PO DAILY 28 days gabapentin 300 - 600 mg PO BEDTIME glipizide 5 mg PO DAILY hydroxyzine HCl 10 mg PO BEDTIME ibuprofen 800 mg PO DAILY PRN lactulose mL PO linaclotide (Linzess) 145 mcg PO QAM memantine 28 mg PO DAILY 28 days memantine 14 mg PO ONCE 28 days memantine 21 mg PO DAILY 28 days omeprazole 20 mg PO DAILY polyethylene glycol 3350 grams PO tizanidine 2 mg PO TID PRN HPI Comments Details: 73y/o female comes for follow up of memory issues. Her memory is worse now she is on an oral device for sleep apnea and is compliant History form last visit-she is accompanied by her daughter who helps with history. Her daughter started noticing short term memory for few years now but worsening in the past 6 mths.Her sleep study was c/w sleep apnea AHI 10/hr O2 anali 77%. she is not using her CPAP . MRI shows atrophy and white matter changes Her weight has increased as she forgets about eating and may overeat. she feels her memory is worse. she misplaces things, she left the stove on once in her daughters house once , repeating conversations, repeating questions , short term memory issues. she can use her phone , remote without issues. she lives alone but her daughter take care of her finances. she denies depression or anxiety. she sleeps Ok, has loud snoring and has daytime fatigue. [facility] Medical History Dementia Obstructive sleep apnea Hypersomnia Snoring Cognitive disorder Obesity (BMI 35.0-39.9 without comorbidity) Depression Hyperlipidemia DJD (degenerative joint disease) Spinal stenosis Fibromyalgia Insomnia Diabetes COVID Thyroid nodule Lung nodule Cervical disc disease Surgical History Hx of cataract surgery Status post right knee replacement Hx of cervical spine surgery History of bunionectomy Hx of shoulder surgery Family History Sister Diabetes Social History Alcohol intake: never Patient Tobacco Use Status: Never used Tobacco Physical Exam Vital Signs: Last Vital Signs Pulse 79 08/12/23 12:37 BP 120/80 08/12/23 12:37 Pulse Ox 97 08/12/23 12:37 Oxygen Delivery Method Room Air 08/12/23 12:37 BMI result Body Mass Index 43.3 Const General: cooperative, healthy appearing and comfortable Nutritional Appearance: obese Orientation/consciousness: patient oriented x3 Limitations: physical limitations HEENT Head: Yes normal to inspection and Yes normocephalic Neck Other: mild restricted range of motion Neuro Other: MOCA - 20/30 General: patient oriented x3, tone normal, moves all extremities and no focal motor deficits Gait exam (Neuro): Normal gait present and Antalgic gait present Motor exam (neuro): 5/5 motor strength present throughout Coordination: [id number] test normal Psych Appearance: grossly normal Assessment & Plan Assessment & Plan (1) Dementia: Code(s): F03.90 - Unspecified dementia, unspecified severity, without behavioral disturbance, psychotic disturbance, mood disturbance, and anxiety Category: Medical (2) Obstructive sleep apnea: Code(s): G47.33 - Obstructive sleep apnea (adult) (pediatric) Category: Medical Plan Continue using oral device for sleep apnea Sleep study results reviewed -patient declines CPAP Cognitive exercises, increase physical activity risk factor reduction - good control of diabetes, HTN , obesity Aricept 10mg qd Continue memantine XR 28mg qd PET Amyloid to evaluate Orders: Orders PET Brain beta amyloid Today F03.90 - Unspecified dementia, unspecified severity, without behavioral disturbance, psychotic disturbance, mood disturbance, and anxiety Medications: Discontinued memantine then stop and increase to 21mg qd Discontinued Reason: Patient no longer taking 14 mg PO ONCE 28 days 28 ea 0RF memantine then stop and increase to 28mg qd Discontinued Reason: Patient no longer taking 21 mg PO DAILY 28 days 28 ea 0RF Coding Level of Care Code Est Pt Level 4 (86419) Diagnoses Dementia F03.90 Obstructive sleep apnea G47.33
== END 2023-08-12 13:06 | disposition home or self-care (01) ==
PROVIDERS: PCP Internal Medicine; Visit Provider Psychiatry & Neurology Neurology
DX: F03.90 Unspecified dementia, unspecified severity, without behavioral disturbance, psychotic disturbance, mood disturbance, and anxiety (principal); G47.33 Obstructive sleep apnea (adult) (pediatric)
CPT/HCPCS: 99214

== ENCOUNTER → 2023-08-12 11:57 | Outpatient (BNVA) | payer OTHER, SELFPAY | PROVIDERS: PCP Internal Medicine; Visit Provider Psychiatry & Neurology Neurology | DX: F03.90 Unspecified dementia, unspecified severity, without behavioral disturbance, psychotic disturbance, mood disturbance, and anxiety (principal); G47.33 Obstructive sleep apnea (adult) (pediatric) | CPT/HCPCS: 99212 ==

== ENCOUNTER 2023-08-19 11:44 | Outpatient (REF) | payer OTHER, SELFPAY ==
[2023-08-19 13:21] LABS: TSH reflex Free T4 0.89 uIU/mL (0.32-4.0)
[2023-08-19 13:34] LABS: Folate 11.5 ng/mL (> or = 4.0); Vitamin B12 366 pg/mL (200-900)
== END 2023-08-19 11:45 | disposition home or self-care (01) ==
LOC: HO.LAB 11:44
PROVIDERS: PCP Nurse Practitioner Family; Visit Provider Psychiatry & Neurology Neurology
DX: F03.90 Unspecified dementia, unspecified severity, without behavioral disturbance, psychotic disturbance, mood disturbance, and anxiety (principal)
CPT/HCPCS: 36415; 82607; 82746; 84443

== ENCOUNTER 2024-02-23 13:36 | Outpatient (AMB) | payer MEDICARE, MEDICAID, SELFPAY ==
--- NOTE | 2024-02-23 13:37 | MHC.OFFVIS ---
Vital Signs 02/23/24 13:38 Height 4 ft 11 in Weight 214 lb BMI 43.2 BP 132/80 Blood Pressure Location Lt brachial Position Sitting Pulse 91 Pulse Source Pulse Oximeter Pulse Oximetry (%) 96 Oxygen Delivery Method Room Air Intake Visit Reasons: 6 mnts f/u appt Screenplay Writer Required: Yes Screenplay Writer Services: Screenplay Writer Offered & Declined (Daughter will translate ) Accompanied by: Daughter Allergies No Known Allergies Allergy (Verified 02/23/24 13:41) Medication List - Last Reconciled 02/23/24 by Jenny Jackman MD atorvastatin 20 mg PO DAILY cyclobenzaprine 5 mg PO TID PRN donepezil 10 mg PO DAILY gabapentin 300 - 600 mg PO BEDTIME glipizide 5 mg PO DAILY hydroxyzine HCl 10 mg PO BEDTIME ibuprofen 800 mg PO DAILY PRN lactulose mL PO linaclotide (Linzess) 145 mcg PO QAM memantine 28 mg PO DAILY 28 days omeprazole 20 mg PO DAILY polyethylene glycol 3350 grams PO tizanidine 2 mg PO TID PRN HPI Comments Details: 74y/o female comes for follow up of memory issues. Her memory is worse now PET scan ( 11/12)was negative for AMyloid. SHe is not using her mouth guard for sleep apnea. she is on tramadol now . History form last visit-she is accompanied by her daughter who helps with history. Her daughter started noticing short term memory for few years now but worsening in the past 6 mths.Her sleep study was c/w sleep apnea AHI 10/hr O2 anali 77%. she is not using her CPAP . MRI shows atrophy and white matter changes Her weight has increased as she forgets about eating and may overeat. she feels her memory is worse. she misplaces things, she left the stove on once in her daughters house once , repeating conversations, repeating questions , short term memory issues. she can use her phone , remote without issues. she lives alone but her daughter take care of her finances. she denies depression or anxiety. she sleeps Ok, has loud snoring and has daytime fatigue. [facility] Medical History Dementia Obstructive sleep apnea Hypersomnia Snoring Cognitive disorder Obesity (BMI 35.0-39.9 without comorbidity) Depression Hyperlipidemia DJD (degenerative joint disease) Spinal stenosis Fibromyalgia Insomnia Diabetes COVID Thyroid nodule Lung nodule Cervical disc disease Surgical History Hx of cataract surgery Status post right knee replacement Hx of cervical spine surgery History of bunionectomy Hx of shoulder surgery Family History Sister Diabetes Social History Alcohol intake: never Patient Tobacco Use Status: Never used Tobacco Physical Exam Vital Signs: Last Vital Signs Pulse 91 02/23/24 13:38 BP 132/80 02/23/24 13:38 Pulse Ox 96 02/23/24 13:38 Oxygen Delivery Method Room Air 02/23/24 13:38 BMI result Body Mass Index 43.2 Const General: cooperative, healthy appearing and comfortable Nutritional Appearance: obese Orientation/consciousness: patient oriented x3 Limitations: physical limitations HEENT Head: Yes normal to inspection and Yes normocephalic Neck Other: mild restricted range of motion Neuro Other: MOCA - 20/30 General: patient oriented x3, tone normal, moves all extremities and no focal motor deficits Gait exam (Neuro): Normal gait present and Antalgic gait present Motor exam (neuro): 5/5 motor strength present throughout Coordination: [id number] test normal Psych Appearance: grossly normal Assessment & Plan Assessment & Plan (1) Dementia: Code(s): F03.90 - Unspecified dementia, unspecified severity, without behavioral disturbance, psychotic disturbance, mood disturbance, and anxiety Category: Medical Qualifiers: Dementia type: unspecified type Dementia severity: mild Dementia behavioral or psychological symptom: without behavioral, psychotic, or mood disturbance or anxiety Qualified Code(s): F03.A0 - Unspecified dementia, mild, without behavioral disturbance, psychotic disturbance, mood disturbance, and anxiety (2) Obstructive sleep apnea: Code(s): G47.33 - Obstructive sleep apnea (adult) (pediatric) Category: Medical Plan Patients daughter is concerned about her progression . she wants a second opinion she is already on donepezil 10mg qd, memantine 10mg bid . Sleep study results reviewed -patient declines CPAP Cognitive exercises, increase physical activity risk factor reduction - good control of diabetes, HTN , obesity PET Amyloid - negative second opinion - Dr. Castrejon or Dr. Zaidi Orders: Referrals Neurology Referral F03.A0 - Unspecified dementia, mild, without behavioral disturbance, psychotic disturbance, mood disturbance, and anxiety Speech and Hearing Referral F03.A0 - Unspecified dementia, mild, without behavioral disturbance, psychotic disturbance, mood disturbance, and anxiety Coding Level of Care Code Est Pt Level 4 (11643) Complex EM visit Add On G2211 Diagnoses Mild dementia without behavioral disturbance, psychotic disturbance, mood disturbance, or anxiety, unspecified dementia type F03.A0 Dementia type: unspecified type Dementia severity: mild Dementia behavioral or psychological symptom: without behavioral, psychotic, or mood disturbance or anxiety Obstructive sleep apnea G47.33
[2024-02-23 13:38] VITALS: BP 132/80; PULSE 91; O2SAT 96; BMI 43.2
== END 2024-02-23 14:26 | disposition home or self-care (01) ==
PROVIDERS: PCP Internal Medicine; Visit Provider Psychiatry & Neurology Neurology
DX: F03.A0 Unspecified dementia, mild, without behavioral disturbance, psychotic disturbance, mood disturbance, and anxiety (principal); G47.33 Obstructive sleep apnea (adult) (pediatric)
CPT/HCPCS: 99214; G2211

== ENCOUNTER → 2024-02-23 13:36 | Outpatient (BNVA) | payer MEDICARE, MEDICAID, SELFPAY | PROVIDERS: PCP Internal Medicine; Visit Provider Psychiatry & Neurology Neurology | DX: F03.A0 Unspecified dementia, mild, without behavioral disturbance, psychotic disturbance, mood disturbance, and anxiety (principal); G47.33 Obstructive sleep apnea (adult) (pediatric) | CPT/HCPCS: 99212 ==

== ENCOUNTER 2024-07-04 11:36 | Outpatient (REF) | payer OTHER, SELFPAY ==
[2024-07-04 13:04] LABS: Folate 10.7 ng/mL (> or = 4.0); Vitamin B12 508 pg/mL (200-900)
--- OUTSIDE RECORDS SUMMARY | 2024-07-04 14:23 | XMS_ITS | Clinical Summary ---
Author Organization [facility] [address] [facility] Address [address] [place] [address] Phone Care Team Providers Care Beamer Helper Name Role Phone Richelle Ivan MD Primary Care Prov ider Allergies No known active allergies Medications donepezil ODT (ARICEPT ODT) 10 mg dispersible tablet Dissolve 1 tablet (10 mg total) on top of the tongue 1 (one) time each day. Active celecoxib (CeleBREX) 100 mg capsule Take 1 capsule (100 mg total) by mouth 2 (two) times a day. Active memantine (NAMENDA XR) 7 mg extended release capsule Take 1 capsule (7 mg total) by mouth 1 (one) time each day. Active traZODone (DESYREL) 100 mg tablet Take 1 tablet (100 mg total) by mouth at bedtime as needed for sleep. 90 tablet 3 024 Active linaCLOtide (LINZESS) 145 mcg capsule Take 1 capsule (145 mcg total) by mouth 1 (one) time each day before breakfast. 90 each 1 024 Active lidocaine (LIDODERM) 5 % patch Place 1 Patch onto the skin every 24 hours. Apply for no more than 12 hours in any 24 hour period. 024 Active meclizine (ANTIVERT) 25 mg tablet Take 1 Tablet by mouth 2 times daily as needed (dizziness). 023 Active blood sugar diagnostic (FreeStyle Lite Strips) test strip Use to check fasting blood glucose every morning before breakfast 022 Active POLYETHYLENE GLYCOL TOP MIX 17GMS IN 8 OZ OF WATER AND DRINK BY MOUTH DAILY EVERY NIGHT. Active albuterol HFA (PROAIR HFA ; PROVENTIL HFA ; VENTOLIN HFA) 90 mcg/actuation inhaler Inhale 2 Puffs into the lungs every 4 hours as needed for Cough, Wheezing or Shortness of Breath. 023 Active chlorhexidine (PERIDEX) 0.12 % solution Active freestyle (FreeStyle Lancets) 28 gauge lancets To check fasting blood glucose every morning before breakfast 100 each 3 Active Ozempic 1 mg/dose (4 mg/3 mL) injection pen INJECT 0.75mL SUBCUTANEOSULY ONCE WEEKLY 3 mL 1 Active lactulose (CHRONULAC) solution Take 15 mL (10 g total) by mouth 2 (two) times a day. 450 mL Active sertraline (ZOLOFT) 25 mg tablet Take 1 tablet (25 mg total) by mouth 1 (one) time each day. 90 each 025 2024 Active atorvastatin (LIPITOR) 20 mg tablet TAKE 1 TABLET BY MOUTH ONCE DAILY 28 tablet Active amitriptyline (ELAVIL) 25 mg tablet TAKE (2) TABLETS BY MOUTH AT BEDTIME. 56 tablet Active aspirin 81 mg EC tablet TAKE 1 TABLET BY MOUTH ONCE DAILY 28 tablet Active aspirin 81 mg EC tablet Take 1 tablet (81 mg total) by mouth 1 (one) time each day. 2024 Discontinued atorvastatin (LIPITOR) 20 mg tablet Take 1 tablet (20 mg total) by mouth at bedtime. 2024 Discontinued Ozempic 1 mg/dose (4 mg/3 mL) injection pen INJECT 0.75mL SUBCUTANEOSULY ONCE WEEKLY 3 mL 025 2024 Discontinued(R eorder) sertraline (ZOLOFT) 25 mg tablet Take 1 tablet (25 mg total) by mouth 1 (one) time each day. 90 each 025 2024 Discontinued(R eorder) lactulose (CHRONULAC) solution Take 15 mL (10 g total) by mouth 2 (two) times a day. 450 mL 025 2024 Discontinued(R betina) Active Problems Problem Noted Date Diagnosed Date Type 2 diabetes mellitus wit h obesity ([facility] V24, [facility] V28) 02/15/2024 Assessment & Plan (04/21/2024 11:47 AM EST): Fair control of diabetes. Patient will continue with yearly Podiatric and Ophthomologic evaluations. Will continue Ozempic 1mg a week. Will check an A1c, CMP, lipid panel before her last visit. Patient will follow up in 3 months Orders: Comprehensive metabolic panel; Future Hemoglobin A1c; Future Lipid panel with reflex to direct LDL; Future Other hyperlipidemia 02/15/2024 Assessment & Plan (04/21/2024 11:47 AM EST): Given the patients cardiac risk profile, the patient requires an LDL cholesterol of less than 70. Continue Atorvastatin 20mg. I have instructed the patient on the principles of a low cholesterol diet and the importance of regular exercise. Will check labs before her next visit. Continue atorvastatin 20 mg daily. Venous insufficiency 02/15/2024 Morbid obesity ([facility] V24, [facility] V28) 2023 Assessment & Plan (04/21/2024 11:47 AM EST): Successfully losing weight, BMI is 36.4. We discussed about healthy diet, regular exercise. Will continue Ozempic. Multiple thyroid nodules 02/15/2024 Chronic constipation 02/15/2024 Gastroesophageal reflux disease without esophagi tis 02/15/2024 Ventral hernia 02/15/2024 Lipoma 02/15/2024 Depressive disorder 02/15/2024 Other insomnia 02/15/2024 Osteoarthrosis, localized, primary, involving lo wer leg 02/15/2024 Degenerative joint disease (DJD) of lumbar spine 02/15/2024 Degenerative joint disease of cervical spine Fibromyalgia 02/15/2024 Spinal stenosis 02/15/2024 Cervical disc herniation 02/15/2024 Overview (02/15/2024): Ms. Obrien is about 10 days status post C6-7 anterior cervical discectomy and fusion with Dr. House. She had brief relief after her surgery followed by return of pain into the arms. She also describes posterior cervical muscle spasm. Dr. House came in to say hello and explained that her arm pain was likely related to positioning and taping at the time of surgery in addition to residual radiculopathy. We explained that the posterior cervical muscle spasm was not uncommon following this procedure. She was given a prescription for tizanidine and will follow up with Dr. House in approximately 3 weeks with a new set of x-rays Acquired pes planovalgus 02/15/2024 S/P total knee replacement, right 02/15/2024 Metatarsus adductus 02/15/2024 Failed bunionectomy 02/15/2024 History of COVID-19 02/15/2024 Lung nodule 02/15/2024 Loose right total knee arthroplasty ([facility] V24 ) 02/15/2024 Mild dementia without behavi oral disturbance, psychotic disturbance, mood disturbance, or anxiety ([facility] V24, [facility] V28) 02/15/2024 Assessment & Plan (04/21/2024 11:47 AM EST): Patient follows regularly with neurology. Her daughter has noticed progressive memory decline. Currently on Donepezil and memantine. However she has also noticed some depressive symptoms, she does not want to go outside as before, sad mood, decreased level of activity, hopelessness. I explained to them that many times dementia comes with depressive symptoms or becomes aggravated because of them. They agreed to start sertraline 25 mg a day. Benefits and possible side effects of this medication were discussed today. They also wanted a second opinion with a different neurologist. A new referral was placed today. Medications as prescribed. Orders: Ambulatory referral to Neurology; Future Known medical problems 03/23/2006 Overview (02/21/2024): S/P TKR on right 2002 IMO Update Fall 2015 Encounters Date Type Department Care Team Description 06/20/[address] [phone] Richelle Ivan MD Med Refill 04/21/2024 11:00 AM EST Office Visit Adult Medicine [address] [phone] Richelle Ivan MD Type 2 diabetes mellitus with obesity ([facility] V24, [facility] V28) (Primary Dx); Other hyperlipidemia; Mild dementia without behavioral disturbance, psychotic disturbance, mood disturbance, or anxiety, unspecified dementia type ([facility] V24, [facility] V28); Obesity (BMI 30-39.9) 04/19/2024 Telephone Adult Medicine [address] [phone] Alivia Martínez RN [facility] follow up 04/10/2024 Telephone Adult Medicine [address] [phone] Alivia Martínez RN 04/06/2024 Telephone Adult Medicine [address] [phone] Joselin Martinez LPN Fitting for DME (Faxed form from [facility]) from Last 3 Months Immunizations Name Administration Dates Next Due H1N1 Inj Preservative Free 04/08/2009 Influenza Quadravalent, 0.5m l (Fluad) 65yo and older 01/14/2021 Influenza Quadravalent, MDCK , 0.5ml, preservative free (Flucelvax) 6mo and older 03/12/2022,02/02/2018 Influenza Quadravalent, MDCK , 0.5ml, with preservative (Flucelvax) 6mo and older 11/25/2016 Influenza trivalent, 0.5mL ( Fluzone High-dose) 65yo and older 12/15/2022,12/28/2019,01/18/2019 Influenza trivalent, with pr eservative (Fluzone; Afluria) 6mo and older 12/26/2015,01/15/2015,12/29/2013,01/24,03/04/2012,12/09/2010,12/20/2008 ,01/21/2007 Pneumococcal conjugate 13 va lent (Prevnar 13, PCV13) 2mo and older 11/08/2017 Pneumococcal polysaccharide 23 valent (Pneumovax 23) 2yo and older 08/07/2020 Td Tetanus diptheria (Tdvax) 7yo and older 07/18/2018 Tdap Tetanus diptheria acell ular pertussis (Boostrix; Adacel) 7yo and older 03/17/2024,04/23/2008 Surgical History Surgery Date Site/Laterality Comments TOTAL KNEE ARTHROPLASTY 11/2002 PROCEDURE: IL ARTHRP KNE CONDYLE&PLATU MEDIAL&LAT COMPARTMENTS; COMMENT: right and left CHOLECYSTECTOMY PROCEDURE: HISTORICAL CHOLECYSTECTOMY COLONOSCOPY 12/11/2008 PROCEDURE: IL COLONOSCOPY FLX DX W/COLLJ SPEC WHEN PFRMD; COMMENT: IMPRESSION: Up to splenic flexure, regular preparation, normal colon exam VENTRAL HERNIA REPAIR 2011 PROCEDURE: HISTORICAL VTRL WALL HERNIA RE HERNIA REPAIR PROCEDURE: HISTORICAL HERNIA REPAIR/UMB SHOULDER SURGERY PROCEDURE: HISTORICAL SHOULDER SURGERY; COMMENT: reverse replacement left 07/06 COLONOSCOPY PROCEDURE: HISTORICAL COLONOSCOPY; COMMENT: performed at [facility] [place]29/2014 with a suggested 10 yr repeat ABDOMINAL SURGERY PROCEDURE: HISTORICAL ABDOMINAL SURGERY; COMMENT: Abdominoplasty/Tummy tuck OTHER SURGICAL HISTORY 05/02/2021 PROCEDURE: IL YOUNGER FACETECTOMY & FORAMOTOMY 1 VRT SGM LUMBAR; COMMENT: Bilateral L3-4 decompression, right L4-5 decompression Medical History Medical History Date Comments Osteoarthrosis, unspecified whether generalized or localized, lower leg 03/23/2006 DX:Osteoarthrosis, unspecified whether generalized or localized, lower leg; COMMENT: S/P TKR on right 2002 Myalgia and myositis, unspecified 03/23/2006 DX:Myalgia and myositis, unspecified Depressive disorder, not els ewhere classified 03/23/2006 DX:Depressive disorder, not elsewhere classified Esophageal reflux 03/23/2006 DX:Esophageal reflux Obesity 06/27/2010 DX:Obesity Insomnia 06/13/2015 DX:Insomnia Total knee replacement status 06/13/2015 DX :Total knee replacement status; COMMENT: right Metatarsus adductus 06/08/2017 DX:Metatarsu s adductus Failed bunionectomy 06/08/2017 DX:Failed bu nionectomy Acquired pes planovalgus 06/08/2017 DX:Acqu ired pes carlinovalmartha Pre-diabetes DX:Pre-diabetes Family History Medical History Relation Name Comments Asthma Mother Breast cancer Neg Hx Colon cancer Neg Hx Ovarian cancer Neg Hx Uterine cancer Neg Hx Relation Name Status Comments Mother Social History Tobacco Use Types Packs/Day Years Used Date Smoking Tobacco: Never Smokeless Tobacco: Never Tobacco Cessation:Counseling Given: Not Answered Alcohol Use Standard Drinks/Week Comments Not Currently 0 (1 standard drink = 0.6 oz pur e alcohol) Housing Instability Answer Date Recorde d Are you worried that in the next 2 months you may not have stable housing? No 03/17/2024 Food Access & Nutrition Answer Date Rec orded Do you have access to a vari ety of food including fruits and vegetables? Yes 03/17/2024 Health Literacy Answer Date Recorded How often do you need to hav e someone help you when you read instructions, pamphlets, or other written material from your doctor or pharmacy? Never 03/17/2024 Caregiver: How often do you need to have someone help you when you read instructions, pamphlets, or other written material from your doctor or pharmacy? Not on file 03/17/2024 Financial Risk Answer Date Recorded How hard is it for you to pa y for the very basics like food, housing, medical care, and air conditioning / heating? Not very hard 03/17/2024 Transportation Answer Date Recorded Has the lack of transportati on kept you from meetings, work, or from getting things needed for daily living? No Has the lack of transportati on kept you from medical appointments or from getting medications? No 03/17/2024 Social Isolation Answer Date Recorded How often do you feel lonely or isolated from th ose around you? Never 03/17/2024 Food Risk Answer Date Recorded Within the past 12 months we worried whether our food would run out before we got money to buy more. Never true 03/17/2024 Within the past 12 months th e food we bought just didn't last and we didn't have money to get more. Never true 03/17/2024 Dependent Care Answer Date Recorded Do you need help finding or paying for care for your loved ones. For example, child care team lead or elderly care for an older adult? No 03/17/2024 Education Answer Date Recorded Do you think completing more education or training, like finishing a GED, going to college, or learning a trade, would be helpful for you? No 03/17/2024 Employment and Income Answer Date Recor ded During the last four weeks, have you been actively looking for work? No 03/17/2024 Living Situation Answer Date Recorded What is your living situation? 1 05/18/2023 Comments No Sex and Gender Information Value Date Recorded Sex Assigned at Female 02/28/2024 2:05 PM EST Legal Sex Female 6:34 AM EST Gender Identity Female 02/28/2024 2:05 PM EST Sexual Orientation Straight 02/28/2024 2: 05 PM EST Obstetrics History Last Filed Vital Signs Vital Sign Reading Time Taken Comments Blood Pressure 112/60 04/21/2024 11:00 AM EST Pulse 80 04/21/2024 11:00 AM EST Temperature 36.3 ??C (97.3 ??F) 04/21/2024 11:[address] Respiratory Rate 16 04/21/2024 11:00 AM EST Oxygen Saturation 97% 02/15/2024 9:50 AM EST Inhaled Oxygen Concentration - - Weight 90.3 kg (199 lb) 04/21/2024 11:00 AM EST Height 157.5 cm (5' 2 ) 03/27/2024 2:13 PM EST Body Mass Index 36.4 03/27/2024 2:13 PM EST Plan of Treatment Upcoming Encounters Date Type Department Care Team (Late st Contact Info) Description 09/26/2024 11:00 AM EDT Office Visit Adult Medicine [facility] [address] [place] [phone] Richelle Ivan MD [address] [place] [id number] Health Maintenance Due Date Last Done Comments Diabetes: Annual Retina Eye Exam 01/28/1962 Zoster Vaccines (1 of 2) 01/28/2002 Medicare Annual Wellness Visit 02/28/2022 COVID-19 Vaccine ( season) 2023 01/14/2021, 07/05/2020, 06/14/2020 Colorectal Cancer Screening: Colonoscopy 03/28/2024 03/28/2014 Diabetes: Blood Sugar Control Test (HGBA1C) 05/23/2024 11/24/2023, 11/24/2023 Influenza Vaccine (Season Ended) 2024 12/15/2022, 03/12/2022, 01/14/2021, Additional history exists Diabetes: Annual Urine Albumin-Creatinine Ratio (uACR) 11/23/2024 11/24/2023 Diabetes: Annual Foot Exam 12/23/2024 12/24/2023 Diabetes: Annual GFR (Glomerular Filtration Rate) 02/14/2025 02/15/2024, 11/24/2023, 11/24/2023 Social Influencers of Health Screening 03/17/2025 03/17/2024 Depression Screening 04/21/2025 04/21/2024, 04/15/19 24 Falls Risk Assessment 04/21/2025 04/21/2024, 024 Breast Cancer Screening 03/13/2026 03/13/20 24, 02/22/2023, 10/17/2021, Additional history exists RSV Immunization Adult Patients (1 - 1-dose 75+ series) 01/28/2027 Cholesterol Screening (Lipid Panel) 11/23/2028 11/24/2023, 11/24/2023 Osteoporosis Screening (Bone Density Screening) 02/22/2033 02/22/2023, 10/04/2018 DTaP,Tdap,and Td Vaccines (4 - Td or Tdap) 03/17/2034 03/17/2024, 07/18/2018, 04/23/2008 Hepatitis C Screening Completed 06/26/2014 Pneumococcal Vaccine: 50+ Years Completed 08/07/2020, 11/08/2017 HIB Vaccines Aged Out No longer eligi ble based on patient's age to complete this topic HPV Vaccines Aged Out No longer eligi ble based on patient's age to complete this topic Hepatitis A Vaccines Aged Out No long er eligible based on patient's age to complete this topic Hepatitis B Vaccines Aged Out No long er eligible based on patient's age to complete this topic IPV Vaccines Aged Out No longer eligi ble based on patient's age to complete this topic MMR Vaccines Aged Out No longer eligi ble based on patient's age to complete this topic Meningococcal ACWY Vaccine Aged Out N o longer eligible based on patient's age to complete this topic Meningococcal B Vaccine Aged Out No l onger eligible based on patient's age to complete this topic RSV Immunization Patients Under 20 months Aged Out No longer eligible based on patient's age to complete this topic Varicella Vaccines Aged Out No longer eligible based on patient's age to complete this topic Procedures Procedure Name Priority Date/Time Associated Diagnosis Comments MG MAMMO DIGITAL SCREENING W CHENTE BILAT Routine 03/13/2024 11:27 AM EST Encounter for screening mammogram for breast cancer COMPREHENSIVE METABOLIC PANEL Routine 02/15/2024 10:44 AM EST Dizziness, nonspecific DIABETES FOOT EXAM Routine 12/24/2023 URINE ALBUMIN CREATININE RATIO Routine 11/24/2023 HEMOGLOBIN A1C Routine 11/24/2023 LIPID PANEL Routine 11/24/2023 DEPRESSION SCREENING Routine 04/15/2023 FALLS RISK ASSESSMENT Routine 04/15/2023 DXA BONE DENSITY STUDY 1+ SITS AXIAL SKEL Routine 02/22/2023 2:24 PM EST History of falling HEPATITIS C SCREENING Routine 06/26/2014 COLONOSCOPY Routine 03/28/2014 from Last 3 Months or Most Recently Relevant to Health Maintenance Results * MG Mammo Digital Screening w Chente bilat (03/13/2024 11:27 AM EST) Anatomical Region Laterality Modality Breast Bilateral Mammography 03/16/2024 11:5 2 AM EST Impressions 03/16/2024 11:57 AM EST No mammographic evidence of malignancy. A negative mammogram in the presence of a clinically suspicious palpable abnormality does not preclude the possibility of malignancy or alter the indications for biopsy. PQRI CPT II 3342F Code 37007, 82581 PQRI 225 CPT II 7025F TISSUE DENSITY: The breasts are almost entirely fatty. (BI-RADS ??Category A) IMPRESSION: Benign. BI-RADS CATEGORY: 2 - BENIGN RECOMMENDATION: Screening bilateral mammogram is recommended in 1 year. Mammo Location: [facility], [address] [place] [id number] -------- FINAL REPORT -------- Dictated By: Adal Pelaez Dictated Date: 03/16/2024 11:52 ET Assigned Physician: Adal Pelaez Reviewed and Electronically Signed By: Adal Pelaez Signed Date: 03/16/2024 11:57 ET Workstation ID: [id number] Transcribed By: Self Edit Transcribed Date: 03/16/2024 11:52 ET Narrative 03/16/2024 11:57 AM EST CLINICAL: The patient is a 74 years Female presenting for routine screening mammography. COMPARISON: Outside studies most recently 02/22/2023 and most remotely 10/04/2018. ?? TECHNIQUE: Full-field digital mammography of the breasts bilaterally consisting of tomosynthesis in MLO and CC projection is performed in the [employer] 2000-D unit. ??Computer aided detection utilizing the BeeTVD system was utilized. FINDINGS: The breasts are again seen to be largely fatty replaced. ??Bilateral punctate calcifications remain of benign appearance and are without suspicious interval change. ??There is no suspicious cluster of microcalcifications, mass, or area of architectural distortion. There is no skin thickening or nipple retraction. Procedure Note Adal Pelaez MD - 03/16/2024 CLINICAL: The patient is a 74 years Female presenting for routinescreening mammography. COMPARISON: Outside studies most recently 02/22/2023 and most remotely10/04/2018. TECHNIQUE: Full-field digital mammography of the breasts bilaterallyconsisting of tomosynthesis in MLO and CC projection is performed in the[employer] 2000-D unit. Computer aided detection utilizing the iCADsystem was utilized. FINDINGS: The breasts are again seen to be largely fatty replaced.Bilateral punctate calcifications remain of benign appearance and arewithout suspicious interval change. There is no suspicious cluster ofmicrocalcifications, mass, or area of architectural distortion. There isno skin thickening or nipple retraction. IMPRESSION: No mammographic evidence of malignancy. A negative mammogram in the presence of a clinically suspicious palpableabnormality does not preclude the possibility of malignancy or alter theindications for biopsy. PQRI CPT II 3342F Code 02484, 00812 PQRI 225 CPT II 7025F TISSUE DENSITY: The breasts are almost entirely fatty. (BI-RADS CategoryA) IMPRESSION: Benign. BI-RADS CATEGORY: 2 - BENIGN RECOMMENDATION: Screening bilateral mammogram is recommended in 1 year. Mammo Location: [facility], [address] [place] [id number] -------- FINAL REPORT -------- Dictated By: Adal Pelaez Dictated Date: 03/16/2024 11:52 ET Assigned Physician: Adal Pelaez Reviewed and Electronically Signed By: Adal Pelaez Signed Date: 03/16/2024 11:57 ET Workstation ID: [id number] Transcribed By: Self Edit Transcribed Date: 03/16/2024 11:52 ET us Self Referral sc IMG BI PROCEDURES Final Resu lt * (ABNORMAL) Comprehensive metabolic panel (02/15/2024 10:44 AM EST) Sodium 140 133 - 145 mmol/L LAB CHEMISTRY METHOD 02/15/2024 2:41 PM EST [facility] Potassium 4.2 3.5 - 5.5 mmol/L LAB CHEMISTRY METHOD 02/15/2024 2:41 PM EST [facility] Chloride 103 96 - 110 mmol/L LAB CHEMISTRY METHOD 02/15/2024 2:41 PM EST [facility] CO2 30 21 - 32 mmol/L LAB CHEMISTRY METHOD 02/15/2024 2:41 PM EST [facility] Anion Gap 7 3 - 11 LAB CHEMISTRY METHOD 02/15/2024 2:41 PM [facility] Glucose 106(H) 70 - 100 mg/dL LAB CHEMISTRY METHOD 02/15/2024 2:41 PM [facility] BUN 19 5 - 25 mg/dL LAB CHEMISTRY METHOD 02/15/2024 2:41 PM [facility] Creatinine 0.74 0.50 - 1.10 mg/dL LAB CHEMISTRY METHOD 02/15/2024 2:41 PM [facility] eGFR 86 >=60 mL/min/1. 73m2 LAB CHEMISTRY METHOD 02/15/2024 2:41 PM [facility] Comment:Calculation based on the??Chronic Kidney Disease Epidemiology Collaboration (CKD-EPI) equation refit??without adjustment for race. BUN/Creatinine Ratio 25.7 LAB CHEMISTRY METHOD 02/15/2024 2:41 PM [facility] Calcium 9.5 8.5 - 10.5 mg/dL LAB CHEMISTRY METHOD 02/15/2024 2:41 PM [facility] AST (SGOT) 30 10 - 42 unit/L LAB CHEMISTRY METHOD 02/15/2024 2:41 PM [facility] ALT (SGPT) 25 10 - 60 unit/L LAB CHEMISTRY METHOD 02/15/2024 2:41 PM [facility] Alkaline Phosphatase 140(H) 42 - 121 unit/L LAB CHEMISTRY METHOD 02/15/2024 2:41 PM [facility] Total Protein 7.5 6.0 - 8.0 g/dL LAB CHEMISTRY METHOD 02/15/2024 2:41 PM [facility] Albumin 3.9 3.2 - 5.0 g/dL LAB CHEMISTRY METHOD 02/15/2024 2:41 PM [facility] Total Bilirubin 0.5 0.0 - 1.4 mg/dL LAB CHEMISTRY METHOD 02/15/2024 2:41 PM [facility] Blood Venous blood specimen / Unknown Venipuncture / Unknown 02/15/2024 10:44 AM EST 02/15/2024 10:44 AM EST Result [facility] Miguel Fleming MD LAB BLOOD ORDERABLES F inal Result [facility] [address] [place] [address], [place] [phone] * Diabetes Foot Exam (12/24/2023) Pathologist [facility] Diabetes: Annual Foot Exam abstracted Result [facility] Historical Provider HEALTH MAINTENANCE Final Result * Urine Albumin Creatinine Ratio (11/24/2023) Pathologist [facility] Urine Albumin Creatinine Ratio abstracted Result [facility] Provider HEALTH MAINTENANCE Final Result * (ABNORMAL) Hemoglobin A1c (11/24/2023) [facility] Hemoglobin A1C 7.5(A) <=6.5 % Blood Venous blood specimen / Unknown Result [facility] Provider LAB BLOOD ORDERABLES Grace l Result * (ABNORMAL) Lipid panel (11/24/2023) [facility] LDL/HDL Ratio 4 0 - 4 Triglycerides 176(A) 0 - 150 mg/dL Cholesterol 146 0 - 200 mg/dL HDL 38(A) >=40 mg/dL LDL Cholesterol 73 0 - 100 mg/dL Blood Venous blood specimen / Unknown Result [facility] Historical Provider LAB BLOOD ORDERABLES Grace l Result * Falls Risk Assessment (04/15/2023) [facility] Falls Risk Assessment abstracted Result [facility] Historical Provider HEALTH MAINTENANCE Final Result * Depression Screening (04/15/2023) Pathologist [facility] Depression Screening abstracted Result [facility] Historical Provider HEALTH MAINTENANCE Final Result * DXA BONE DENSITY STUDY 1+ SITS AXIAL SKEL (02/22/2023 2:24 PM EST) Anatomical Region Laterality Modality Bone Densitometr y 03/12/2022 3:24 PM EST Narrative 02/24/2023 1:11 PM EST BONE DENSITY ? Lumbar Spine T-score is +1.4 ?? (SD relative to 20-29 y/o adult) Z-score is +3.6 ??(SD relative to age matched peers) This is normal by criteria defined by the WHO. Left Hip T-score is -1.8 Z-score is -0.1 This is consistent with osteopenia by criteria defined by the WHO. Comparison exam(s): no statistically significant change in the bone density of the hip and lumbar spine when compared to most recent bone density examination ?? Confidence level is +/-95%. Impression: Based on the World Health Organization criteria, Ella Obrien should be classified as having osteopenia. This patient has a 7% risk of major osteoporotic fracture and a 1.3% risk of hip fracture over the next 10 years. (World Health Organization Fracture Risk Assessment) [facility] Department of Internal Medicine recommends using National Osteoporosis Foundation (NOF) guidelines in treatment decisions related to osteoporosis. NOF guidelines suggest considering treatment for postmenopausal women and men aged 50 or older presenting with the following: History of hip or vertebral fracture. T-score less than or equal to -2.5 (DXA) at the femoral neck, total hip, or spine, after appropriate evaluation to exclude secondary causes. Low bone mass (T-score between -1.0 and -2.5 at the femoral neck or spine) AND a 10-year probability of a hip fracture greater than or equal to 3% OR a 10-year probability of a major osteoporosis-related fracture greater than or equal to 20% based on the [place]-adapted WHO algorithm Please note that all treatment decisions require clinical judgment and consideration of individual patient factors, including patient preferences, co-morbidities, previous drug use, risk factors not captured in the FRAX model (e.g., frailty, falls, vitamin D deficiency, increased bone turnover, interval significant decline in bone density) and possible under- or over-estimation of fracture risk by FRAX. Procedure Note Romally, Kylie, MD - 04/27/2023 BONE DENSITY Lumbar Spine T-score is +1.4 (SD relative to 20-29 y/o adult) Z-score is +3.6 (SD relative to age matched peers) This is normal by criteria defined by the WHO. Left Hip T-score is -1.8 Z-score is -0.1 This is consistent with osteopenia by criteria defined by the WHO. Comparison exam(s): no statistically significant change in the bonedensity of the hip and lumbar spine when compared to most recent bonedensity examination Confidence level is +/-95%. Impression: Based on the World Health Organization criteria, Ella Obrien should beclassified as having osteopenia. This patient has a 7% risk of majorosteoporotic fracture and a 1.3% risk of hip fracture over the next 10years. (World Health Organization Fracture Risk Assessment) [facility] Department of Internal Medicine recommendsusing National Osteoporosis Foundation (NOF) guidelines in treatmentdecisions related to osteoporosis. NOF guidelines suggest consideringtreatment for postmenopausal women and men aged 50 or older presentingwith the following: History of hip or vertebral fracture. T-score less than or equal to -2.5 (DXA) at the femoral neck, total hip,or spine, after appropriate evaluation to exclude secondary causes. Low bone mass (T-score between -1.0 and -2.5 at the femoral neck or spine)AND a 10-year probability of a hip fracture greater than or equal to 3% ORa 10-year probability of a major osteoporosis-related fracture greaterthan or equal to 20% based on the [place]-adapted WHO algorithm Please note that all treatment decisions require clinical judgment andconsideration of individual patient factors, including patientpreferences, co-morbidities, previous drug use, risk factors not capturedin the FRAX model (e.g., frailty, falls, vitamin D deficiency, increasedbone turnover, interval significant decline in bone density) and possibleunder- or over-estimation of fracture risk by FRAX. Richelle Ivan MD [facility] DXA PROCEDURES Final Result * Hepatitis C Screening (06/26/2014) Hepatitis C Screening abstracted us Historical Provider HEALTH MAINTENANCE Final Result * Colonoscopy (03/28/2014) Colonoscopy no interpretation , abstracted Anatomical Region Laterality Modality Other us Historical Provider HEALTH MAINTENANCE Final Result from Last 3 Months or Most Recently Relevant to Health Maintenance [place] [address] [place] [address] Member Subscriber Plan / Payer ( fective 2023-Present) Name:Ella Obrien Relation to Subscriber:Self Name:Ella Obrien Payer ID:[id number] Group ID:[id number] Type:Not on file Address: [address] [place] [address] [facility] MEDICARE Member Subscriber Plan / Payer ( fective 2023-Present) Name:Ella Obrien Relation to Subscriber:Self Name:Ella Obrien Payer ID:[id number] Group ID:[id number] Type:Not on file Address: [address] [place] [address] [facility] MEDICAID Advance Directives Documents on File Type Date Recorded Patient Adventure Therapist Expl anation Health Care Decision (hx) 06/04/2011 AD CLAY DIRECTIVE Health Care Decision (hx) 06/04/2011 AD CLAY DIRECTIVE Health Care Decision (hx) 06/04/2011 AD CLAY DIRECTIVE Health Care Decision (hx) 06/04/2011 AD CLAY DIRECTIVE Health Care Decision (hx) 06/04/2011 AD CLAY DIRECTIVE Health Care Decision (hx) 06/04/2011 AD CLAY DIRECTIVE Health Care Decision (hx) 06/04/2011 AD CLAY DIRECTIVE Health Care Decision (hx) 06/04/2011 AD CLAY DIRECTIVE Health Care Decision (hx) 06/04/2011 AD CLAY DIRECTIVE Health Care Decision (hx) 06/04/2011 AD CLAY DIRECTIVE Health Care Decision (hx) 06/04/2011 AD CLAY DIRECTIVE Health Care Decision (hx) 06/04/2011 AD CLAY DIRECTIVE Health Care Decision (hx) 06/04/2011 AD CLAY DIRECTIVE Health Care Decision (hx) 06/04/2011 AD CLAY DIRECTIVE Health Care Decision (hx) 06/04/2011 AD CLAY DIRECTIVE Health Care Decision (hx) 06/04/2011 AD CLAY DIRECTIVE Care Teams Beamer Helper Relationship Specialty Start Date End Date Richelle Ivan MD [address] [place] [id number] PCP - General Internal Medicine 02/15/24
== END 2024-07-04 11:37 | disposition home or self-care (01) ==
LOC: HO.LAB 11:36
PROVIDERS: PCP Internal Medicine; Visit Provider Psychiatry & Neurology Neurology
DX: G30.9 Alzheimer's disease, unspecified (principal)
CPT/HCPCS: 36415; 82607; 82746; 84443

== ENCOUNTER 2024-09-28 11:12 | Outpatient (AMB) | payer OTHER, SELFPAY ==
--- OUTSIDE RECORDS SUMMARY | 2024-09-26 11:00 | XMS_ITS | Encounter Summary ---
Author Organization [employer] Address [address] [place] [address] Care Team Providers Care Automatic Cigar Wrapper Tender Name Role Phone Richelle Ivan MD Primary Care Prov ider Reason for Visit * Reason Comments Diabetes Encounter Details Date Type Department Care Team (Late st Contact Info) Description 09/26/2024 11:00 AM EDT Office Visit Adult Medicine [address] [phone] Richelle Ivan MD [address] [place] [id number] Type 2 diabetes mellitus with obesity (CMS/HCC V24, CMS/HCC V28) (Primary Dx); Other hyperlipidemia; Mild dementia without behavioral disturbance, psychotic disturbance, mood disturbance, or anxiety, unspecified dementia type (CMS/HCC V24, CMS/HCC V28); Mixed stress and urge urinary incontinence Social History Tobacco Use Types Packs/Day Years Used Date Smoking Tobacco: Never Smokeless Tobacco: Never Alcohol Use Standard Drinks/Week Comments Not Currently [...] for your loved ones. For example, child support officer or elderly care for an older adult? [...] Orientation Straight 02/28/2024 2: 05 PM EST documented as of this encounter Last Filed Vital Signs Vital Sign Reading Time Taken Comments Blood Pressure 132/80 09/26/2024 10:49 AM EDT Pulse 83 09/26/2024 10:49 AM EDT Temperature 36.3 C (97.4 F) 09/26/2024 10:49 AM EDT Respiratory Rate 16 09/26/2024 10:49 AM EDT Oxygen Saturation - - Inhaled Oxygen Concentration - - Weight 86.2 kg (190 lb) 09/26/2024 10:49 AM EDT Height - - Body Mass Index 34.75 03/27/2024 2:13 PM EST documented in this encounter Ordered Prescriptions Prescription Sig Dispense Quantity Refills Last Filled Start Date End Date traZODone (DESYREL) 100 mg tablet Take 1 tablet (100 mg total) by mouth at bedtime. 90 tablet 3 09/26/2024 documented in this encounter Progress Notes * Richelle Ivan MD - 09/26/2024 11:00 AM EDTAssociated Problem(s): Mild dementia without behavioral disturbance, psychotic disturbance, mood dis turbance, or anxiety (CMS/HCC V24, CMS/HCC V28) Patient follows regularly with neurology. Her daughter has noticed progressive memory decline, withrapid progression. Currently on Donepezil and memantine. She was referred for an evaluation by another specialist in [place], pending appt. * Richelle Ivan MD - 09/26/2024 11:00 AM EDTAssociated Problem(s): Other hyperlipidemia Given the patients cardiac risk profile, the patient requires an LDL cholesterol of less than 70. Continue Atorvastatin 20mg. I have instructed the patient on the principles of a low cholesterol dietand the importance of regular exercise. Pending repeat labs. Continue atorvastatin 20 mg daily. * Richelle Ivan MD - 09/26/2024 11:00 AM EDTAssociated Problem(s): Type 2 diabetes mellitus with obesity (CMS/[facility] V24, [facility] V28) Fair control of diabetes. Patient will continue with yearly Podiatric and Ophthomologic evaluations. Will continue Ozempic 1mg a week. Pending repeat labs. Patient will follow up in 6 months * Eleanor Rodriguez MA - 09/26/2024 11:00 AM EDT Lab Results Component Value Date HGBA1C 7.5 (A) 11/24/2023 * Richelle Ivan MD - 09/26/2024 11:00 AM EDT Images from the original note were not included. Chief Complaint Ella Obrien is a 74 y.o. female presenting for Diabetes Subjective Patient with a pmh of DM, HLD, vascular dementia, comes for med review. Currently on Ozempic 1 mg week. Following with neuro for vascular dementia, will see a new provider for poor response to the medications, rapid deterioration. Eye evaluation: 03/29/2024 Successfully losing weight. Patient lives by herself, has a group insurance specialist every day and her daughter checks on her every day after the group insurance specialist leaves. Her daughter takes her for walks around 2 times a week, however she has been less interested in going outside. The following portions of the patient's history were reviewed by a provider in this encounter and updated as appropriate: Allergies: She has No Known Allergies. Medications: Current Outpatient Medications Medication Instructions albuterol HFA (PROAIR HFA ; PROVENTIL HFA ; VENTOLIN HFA) 90 mcg/actuation inhaler Inhale 2 Puffs into the lungs every 4 hours as needed for Cough, Wheezing or Shortness of Breath. amitriptyline (ELAVIL) 25 mg tablet TAKE (2) TABLETS BY MOUTH AT BEDTIME. aspirin 81 mg, oral, Daily atorvastatin (LIPITOR) 20 mg, oral, Daily blood sugar diagnostic (FreeStyle Lite Strips) test strip Use to check fasting blood glucose every morning before breakfast celecoxib (CELEBREX) 100 mg, 2 times daily chlorhexidine (PERIDEX) 0.12 % solution donepezil ODT (ARICEPT ODT) 10 mg, Daily freestyle (FreeStyle Lancets) 28 gauge lancets To check fasting blood glucose every morning before breakfast lactulose (CHRONULAC) 10 g, oral, 2 times daily lidocaine (LIDODERM) 5 % patch Place 1 Patch onto the skin every 24 hours. Apply for no more than 12 hours in any 24 hour period. linaCLOtide (Linzess) 145 mcg capsule TAKE 1 CAPSULE BY MOUTH EVERY MORNING BEFORE BREAKFAST. DISPENSE IN ORIGINAL PACKAGE meclizine (ANTIVERT) 25 mg tablet Take 1 Tablet by mouth 2 times daily as needed (dizziness). memantine (NAMENDA XR) 7 mg, Daily Ozempic 1 mg/dose (4 mg/3 mL) injection pen INJECT 0.75mL SUBCUTANEOSULY ONCE WEEKLY POLYETHYLENE GLYCOL TOP MIX 17GMS IN 8 OZ OF WATER AND DRINK BY MOUTH DAILY EVERY NIGHT. sertraline (ZOLOFT) 25 mg, oral, Daily traZODone (DESYREL) 100 mg, oral, Nightly PRN Objective BP 132/80 Pulse 83 Temp 36.3 ??C (97.4 ??F) Resp 16 Wt 86.2 kg (190 lb) BMI 34.75 kg/m?? Physical Exam Vitals reviewed. Constitutional: Appearance: Normal appearance. Cardiovascular: Rate and Rhythm: Normal rate and regular rhythm. Heart sounds: Normal heart sounds. Pulmonary: Effort: Pulmonary effort is normal. Breath sounds: Normal breath sounds. Musculoskeletal: General: No swelling. Normal range of motion. Cervical back: Neck supple. Skin: General: Skin is warm. Neurological: General: No focal deficit present. Mental Status: She is alert. Assessment/Plan Assessment & Plan Type 2 diabetes mellitus with obesity ([facility] V24, [facility] V28) Fair control of diabetes. Patient will continue with yearly Podiatric and Ophthomologic evaluations. Will continue Ozempic 1mg a week. Pending repeat labs. Patient will follow up in 6 months Other hyperlipidemia Given the patients cardiac risk profile, the patient requires an LDL cholesterol of less than 70. Continue Atorvastatin 20mg. I have instructed the patient on the principles of a low cholesterol dietand the importance of regular exercise. Pending repeat labs. Continue atorvastatin 20 mg daily. Mild dementia without behavioral disturbance, psychotic disturbance, mood disturbance, or anxiety, unspecified dementia type ([facility] V24, [facility] V28) Patient follows regularly with neurology. Her daughter has noticed progressive memory decline, withrapid progression. Currently on Donepezil and memantine. She was referred for an evaluation by another specialist in [place], pending appt. Mixed stress and urge urinary incontinence Patient with urinary incontinence, she manages with pads. All questions and concerns were addressed. Patient verbalizes understanding and agrees with above treatment plan. Patient was advised to contact the office with any worsening symptoms or if new or existing problems arise. Patient to follow- up in 6 months. I have applied the code G2211 to this patient???s visit as the primary care provider, associated with longitudinal, non-procedural care and given our team has an ongoing relationship with the patientin the management of chronic conditions DM, HLD, dementia, leading to the extensive work up, and management. Richelle Otero MD ADULT MEDICINE [address] [address] Dept: [phone] Dept Date of Visit: 09/26/2024 documented in this encounter Plan of Treatment Upcoming Encounters Date Type Department Care Team (Late st Contact Info) Description 03/29/2025 11:00 AM EST Office Visit Adult [address] [phone] Richelle Ivan MD [address] [place] [phone] documented as of this encounter Visit Diagnoses Diagnosis Type 2 diabetes mellitus with obesity ([facility] V24, [facility] V28)- Primary Other hyperlipidemia Mild dementia without behavioral disturbance, psychotic disturbance, mood disturbance, or anxiety, unspecified dementia type ([facility] V24, [facility] V28) Mixed stress and urge urinary incontinence Mixed incontinence urge and stress (male)(female) documented in this encounter Discontinued Medications Medication Sig Discontinue Reason Start Date End Da te meclizine (ANTIVERT) 25 mg tablet Take 1 Tablet by mouth 2 times daily as needed (dizziness). Therapy completed 01/26/2023 09/26/2024 POLYETHYLENE GLYCOL TOP MIX 17GMS IN 8 OZ OF WATER AND DRINK BY MOUTH DAILY EVERY NIGHT. Therapy completed 08/24/2023 09/26/2024 chlorhexidine (PERIDEX) 0.12 % solution Therapy completed 04/12/2023 09/26/2024 traZODone (DESYREL) 100 mg tablet Take 1 tablet (100 mg total) by mouth at bedtime as needed for sleep. Reorder 02/15/2024 09/26/2024 documented as of this encounter Additional Health Concerns Assessment Noted Time PHQ-9 Depression Total Score: 0 04/21/19 25 11:04 AM EST documented as of this encounter Care Teams Automatic Cigar Wrapper Tender Relationship Specialty Start Date End Date Richelle Ivan MD [address] [place] [id number] PCP - General Internal Medicine 02/15/24 documented as of this encounter
--- NOTE | 2024-09-28 12:03 | MHC.OFFVIS ---
Intake Visit Reasons: 3M AD Accompanied by: Daughter Allergies No Known Allergies Allergy (Verified 09/28/24 12:10) Medication List - Last Reconciled 09/28/24 by Kristen Ahumada CNP amitriptyline 25 mg PO DAILY aspirin 81 mg PO DAILY atorvastatin 20 mg PO DAILY celecoxib 100 mg PO BID cyclobenzaprine 5 mg PO TID PRN donepezil 10 mg PO DAILY gabapentin 300 - 600 mg PO BEDTIME glipizide 5 mg PO DAILY hydroxyzine HCl 10 mg PO BEDTIME ibuprofen 800 mg PO DAILY PRN lactulose mL PO linaclotide (Linzess) 145 mcg PO QAM memantine (Namenda) 10 mg PO BID polyethylene glycol 3350 grams PO semaglutide (Ozempic) 1 mg subcut QWEEK sertraline 25 mg PO DAILY tizanidine 2 mg PO TID PRN trazodone 50 mg PO BEDTIME PRN HPI Comments Details: 74-year-old woman with dementia who was noted to have some cognitive decline and increasing forgetfulness starting around 2021. She lives alone with her dog (she had two, but one passed about a month ago). One son passed about 4 years ago and her passed about 5 years ago at age 74 from dementia. She has [employer]ST [employer] for 48 hours/week and has family (including her daughter and son), who visit her frequently. She has a car, but no longer drives. Her daughter manages her finances. She needs reminders to change clothes and bathe. She needs help with dressing, bathing, and doing her hair. She was here with her daughter. Memory declining, more forgetful and repetitive. She will sometimes forget that she already ate. She will sometimes over the feed her dog, forgetting that she already fed him, or will forget to feed the dog completely. She would say no one visits her and that she has not seen her grandson for months, although he had visited the day before. She was cooking some, but only with supervision. She did not want to do much anymore and did not want to leave the house. She stopped going to [employer] on Wednesday?s a few months ago. She could be agitated at times, especially if she was asked to do something that she did not want to. ? [facility] Medical History (Updated 09/28/24 @ 12:06 by Kristen Rondinelli, [employer]) Alzheimer disease Dementia Obstructive sleep apnea Hypersomnia Snoring Cognitive disorder Obesity (BMI 35.0-39.9 without comorbidity) Depression Hyperlipidemia DJD (degenerative joint disease) Spinal stenosis Fibromyalgia Insomnia Diabetes COVID Thyroid nodule Lung nodule Cervical disc disease Surgical History Hx of cataract surgery Status post right knee replacement Hx of cervical spine surgery History of bunionectomy Hx of shoulder surgery Family History Sister Diabetes Social History Alcohol intake: never Patient Tobacco Use Status: Never used Tobacco Review of Systems Const Denies chills, Denies daytime sleepiness, Denies difficulty sleeping, Denies fatigue, Denies fever(s), Denies frequent falls, Denies headache(s), Denies increased appetite, Denies poor appetite, Denies snoring, Denies weakness, Denies weight gain and Denies weight loss Eyes Denies loss of vision ENT Denies vertigo, Denies dizziness, Denies headache(s) and Denies neck pain Card Denies chest pain at rest, Denies chest pain with activity, Denies syncope, Denies leg edema, Denies palpitations, Denies dyspnea and Denies dyspnea on exertion Resp Denies cough, Denies dyspnea, Denies dyspnea on exertion and Denies snoring GI Denies abdominal pain, Denies constipation, Denies heartburn, Denies diarrhea and Denies nausea Denies urinary frequency, Denies urinary incontinence and Denies urinary urgency Musc Denies abnormal gait, Denies back pain, Reports myalgias, Reports arthralgias, Denies neck pain, Denies numbness, Denies stiffness and Denies tingling Neuro Denies abnormal gait, Denies vertigo, Denies dizziness, Denies syncope, Denies frequent falls, Denies headache(s), Denies lack of coordination, Denies loss of vision, Reports memory loss, Denies numbness, Denies Other visual disturbances, Denies restless legs, Denies seizure-like activity, Denies tingling, Denies paresthesias, Denies tremor(s) and Denies weakness Psych Denies anxiety, Denies depression, Denies auditory hallucinations, Reports memory loss, Denies visual hallucinations and Denies hallucinations Endo Denies fatigue and Denies palpitations Physical Exam Const Other: General Appearance:? normal, in no acute distress. Heart:? S1, S2 normal, no murmurs. Lungs:? clear anteriorly and posteriorly. Musculoskeletal:? normal. Extremities:? no edema. Psych:? alert, as below Neuro Other: Abnormal Neurological Findings:?MMSE 17/30 Mental Status: alert, as below Cranial Nerves: Pupils are equal, round, and reactive to light. External ocular muscles are intact. Visual chahal are full, no ptosis. Face is symmetrical, no facial weakness or droop. Facial sensations are normal. Tongue protrudes in midline. Palate elevates symmetrically. Shoulder shrugging is normal Motor Examination: Normal muscle tone, bulk and strength. No atrophy or fasciculations. No drift of the extended upper extremities. DTR 2+. Plantars are flexor. Straight Leg Raisin degrees. Sensory Exam: Normal light touch, temperature, pinprick, vibration, and joint-position sensations. Rhomberg sign is absent. Coordination: No ataxia. No titubation. Awlvjx-dh-pqui, byzw-wsjz-wnxm test, and rapid alternating movements were normal. Gait Exam: Within normal limits. Cerebellar Signs: Nemwle-qv-xmxe and zfza-gr-gpja is normal. No dysdiadochokinesia. Extrapyramidal System: No tremor, rigidity with normal facial expressions. No bradykinesia. No bradyphrenia. Normal arm swing and posture. No propulsion or retropulsion. Speech: Normal. No dysphasia or dysarthria. MMSE Level of Consciousness: Alert. Orientation: Knows season. Knows correct city, county and state. Knows correct floor. Does not know year, month, date, day, or location. Registration: Able to register 3 objects. Attention: Unable to do serial 7's Recall: Able to recall 0 out of 3 objects. Language: Normal spontaneous speech, fluency, repetition, naming, comprehension, reading, and writing. Total Score: . Results Reviewed Results Reviewed: CT Brain 02/2024: Unremarkable for age EEG 07/19/2024: WNL Laboratory Tests 07/04/24 11:38 Vitamin B12 508 Folate 10.7 TSH 1.30 Assessment & Plan Assessment & Plan (1) Alzheimer disease: Code(s): G30.9 - Alzheimer's disease, unspecified; F02.80 - Dementia in other diseases classified elsewhere, unspecified severity, without behavioral disturbance, psychotic disturbance, mood disturbance, and anxiety Category: Medical Plan: She was here with her daughter. Results reviewed. Increase sertraline 50mg 1 tablet daily. Continue donepezil 10mg 1 tablet at bedtime. Continue memantine 10mg 1 tablet twice a day. Plan . Medications: New sertraline 50 mg PO DAILY 30 tabs 3RF 30 days Coding Level of Care Code Est Pt Level 4 (24470) Diagnoses Alzheimer disease G30.9; F02.80
== END 2024-09-28 12:36 | disposition home or self-care (01) ==
LOC: HO.HSM 11:12
PROVIDERS: PCP Internal Medicine; Referring Provider Internal Medicine; Visit Provider Registered Nurse
DX: G30.9 Alzheimer's disease, unspecified (principal); F02.80 Dementia in other diseases classified elsewhere, unspecified severity, without behavioral disturbance, psychotic disturbance, mood disturbance, and anxiety
CPT/HCPCS: 99214

== ENCOUNTER → 2024-09-28 11:12 | Outpatient (BNVA) | payer OTHER, SELFPAY | PROVIDERS: PCP Internal Medicine; Referring Provider Internal Medicine; Visit Provider Registered Nurse | DX: G30.9 Alzheimer's disease, unspecified (principal); F02.80 Dementia in other diseases classified elsewhere, unspecified severity, without behavioral disturbance, psychotic disturbance, mood disturbance, and anxiety; Z79.899 Other long term (current) drug therapy | CPT/HCPCS: 99212 ==

== ENCOUNTER 2025-01-08 11:09 | Outpatient (AMB) | payer OTHER, SELFPAY ==
--- NOTE | 2025-01-08 11:09 | MHC.OFFVIS ---
Intake Visit Reasons: 3M Accompanied by: Daughter Allergies No Known Allergies Allergy (Verified 01/08/25 11:11) Medication List - Last Reconciled 01/08/25 by Kristen Ahumada CNP amitriptyline 25 mg PO DAILY aspirin 81 mg PO DAILY atorvastatin 20 mg PO DAILY celecoxib 100 mg PO BID cyclobenzaprine 5 mg PO TID PRN donepezil 10 mg PO DAILY gabapentin 300 - 600 mg PO BEDTIME glipizide 5 mg PO DAILY hydroxyzine HCl 10 mg PO BEDTIME 30 days ibuprofen 800 mg PO DAILY PRN lactulose mL PO linaclotide (Linzess) 145 mcg PO QAM memantine (Namenda) 10 mg PO BID polyethylene glycol 3350 grams PO semaglutide (Ozempic) 1 mg subcut QWEEK sertraline 50 mg PO DAILY 30 days tizanidine 2 mg PO TID PRN trazodone 50 mg PO BEDTIME PRN HPI Comments Details: 74-year-old woman with dementia who was noted to have some cognitive decline and increasing forgetfulness starting around 2021. She lives alone with her dog. One son passed around 2020, and her passed around 2019 at age 74 from dementia. She has [employer] for 48 hours/week and has family (including her daughter and son), who visit her frequently. She has a car, but no longer drives. Her daughter manages her finances. She needs reminders to change clothes and bathe. She needs help with dressing, bathing, and doing her hair. Memory was declining some, more forgetful and repetitive. She was needed more reminders. Sometimes, she forgot to eat or if she already ate. She lived alone, but someone was always with her, either [employer] or family. No safety issues. Mood was better with increased dose of sertraline. She enjoyed sitting outside with her dog. She went to [facility] once in the last 3 months. Sleep was okay. [facility] Medical History (Updated 09/28/24 @ 12:06 by Kristen Ahumada CNP) Alzheimer disease Dementia Obstructive sleep apnea Hypersomnia Snoring Cognitive disorder Obesity (BMI 35.0-39.9 without comorbidity) Depression Hyperlipidemia DJD (degenerative joint disease) Spinal stenosis Fibromyalgia Insomnia Diabetes COVID Thyroid nodule Lung nodule Cervical disc disease Surgical History Hx of cataract surgery Status post right knee replacement Hx of cervical spine surgery History of bunionectomy Hx of shoulder surgery Family History Sister Diabetes Social History Alcohol intake: never Patient Tobacco Use Status: Never used Tobacco Review of Systems Const Denies chills, Denies daytime sleepiness, Denies difficulty sleeping, Denies fatigue, Denies fever(s), Denies frequent falls, Denies headache(s), Denies increased appetite, Denies poor appetite, Denies snoring, Denies weakness, Denies weight gain and Denies weight loss Eyes Denies loss of vision ENT Denies vertigo, Denies dizziness, Denies headache(s) and Denies neck pain Card Denies chest pain at rest, Denies chest pain with activity, Denies syncope, Denies leg edema, Denies palpitations, Denies dyspnea and Denies dyspnea on exertion Resp Denies cough, Denies dyspnea, Denies dyspnea on exertion and Denies snoring GI Denies abdominal pain, Denies constipation, Denies heartburn, Denies diarrhea and Denies nausea Denies urinary frequency, Denies urinary incontinence and Denies urinary urgency Musc Denies abnormal gait, Denies back pain, Reports myalgias, Reports arthralgias, Denies neck pain, Denies numbness, Denies stiffness and Denies tingling Neuro Denies abnormal gait, Denies vertigo, Denies dizziness, Denies syncope, Denies frequent falls, Denies headache(s), Denies lack of coordination, Denies loss of vision, Reports memory loss, Denies numbness, Denies Other visual disturbances, Denies restless legs, Denies seizure-like activity, Denies tingling, Denies paresthesias, Denies tremor(s) and Denies weakness Psych Denies anxiety, Denies depression, Denies auditory hallucinations, Reports memory loss, Denies visual hallucinations and Denies hallucinations Endo Denies fatigue and Denies palpitations Physical Exam Const Other: General Appearance:? normal, in no acute distress. Heart:? S1, S2 normal, no murmurs. Lungs:? clear anteriorly and posteriorly. Musculoskeletal:? normal. Extremities:? no edema. Psych:? alert, as below Neuro Other: Abnormal Neurological Findings:?MMSE 18/30 Mental Status: alert, as below Cranial Nerves: Pupils are equal, round, and reactive to light. External ocular muscles are intact. Visual chahal are full, no ptosis. Face is symmetrical, no facial weakness or droop. Facial sensations are normal. Tongue protrudes in midline. Palate elevates symmetrically. Shoulder shrugging is normal Motor Examination: Normal muscle tone, bulk and strength. No atrophy or fasciculations. No drift of the extended upper extremities. DTR 2+. Plantars are flexor. Sensory Exam: Normal light touch, temperature, pinprick, vibration, and joint-position sensations. Rhomberg sign is absent. Coordination: No ataxia. No titubation. Gait Exam: Within normal limits. Cerebellar Signs: Ooscck-il-ppla is okay. Extrapyramidal System: No tremor, rigidity with normal facial expressions. No bradykinesia. No bradyphrenia. Normal arm swing and posture. No propulsion or retropulsion. Speech: Normal. MMSE Level of Consciousness: Alert. Orientation: Knows year, season. Knows correct city, county and state. Knows correct floor. Does not know month, date, day, or location. Registration: Able to register 3 objects. Attention: Unable to do serial 7's Recall: Able to recall 0 out of 3 objects. Language: Normal spontaneous speech, fluency, repetition, naming, comprehension, reading, and writing. Total Score: 18/30. Results Reviewed Results Reviewed: CT Brain 02/2024: Unremarkable for age EEG 07/19/2024: WNL Laboratory Tests 07/04/24 11:38 Vitamin B12 508 Folate 10.7 TSH 1.30 Assessment & Plan Assessment & Plan (1) Alzheimer disease: Code(s): G30.9 - Alzheimer's disease, unspecified; F02.80 - Dementia in other diseases classified elsewhere, unspecified severity, without behavioral disturbance, psychotic disturbance, mood disturbance, and anxiety Category: Medical Plan: She was here with her daughter. They were educated on this condition and its prognosis. Continue sertraline 50mg 1 tablet daily. Continue donepezil 10mg 1 tablet at bedtime. Continue memantine 10mg 1 tablet twice a day. Stay physically and socially active. Coding Level of Care Code Est Pt Level 4 (47512) Diagnoses Alzheimer disease G30.9; F02.80
== END 2025-01-08 11:24 | disposition home or self-care (01) ==
LOC: HO.HSM 11:09
PROVIDERS: PCP Internal Medicine; Visit Provider Registered Nurse
DX: G30.9 Alzheimer's disease, unspecified (principal); F02.80 Dementia in other diseases classified elsewhere, unspecified severity, without behavioral disturbance, psychotic disturbance, mood disturbance, and anxiety
CPT/HCPCS: 99214

== ENCOUNTER → 2025-01-08 11:09 | Outpatient (BNVA) | payer OTHER, SELFPAY | PROVIDERS: PCP Internal Medicine; Visit Provider Registered Nurse | DX: G30.9 Alzheimer's disease, unspecified (principal); F02.80 Dementia in other diseases classified elsewhere, unspecified severity, without behavioral disturbance, psychotic disturbance, mood disturbance, and anxiety | CPT/HCPCS: 99212 ==

== ENCOUNTER 2025-03-05 13:33 | Outpatient (AMB) | payer MEDICARE, MEDICAID, SELFPAY ==
--- NOTE | 2025-03-05 13:59 | A.PHYSOV ---
Vital Signs 03/05/25 14:01 Height 4 ft 11 in Weight 190 lb BMI 38.4 Intake Visit Reasons: increased back pain Intake Note: Patient is 75 year old female in office today for increase low back pain Radio Adjuster Required: Yes Radio Adjuster Services: Radio Adjuster Present Radio Adjuster Name: paul Burnett Information Interpreted: non-clinical & clinical Allergies No Known Allergies Allergy (Verified 03/05/25 14:02) HPI Comments Details: History of Present Illness The patient is a 75 year old female presenting for a follow-up visit regarding persistent lower back pain and right-sided lumbar radiculitis. She has a history of multiple lumbar injections, including right L4 transforaminal, L5-S1 intranominal, and a sacroiliac joint injection on April 07, 2024, which generally provided about a 70% reduction in her symptoms. Her history also includes bilateral subacromial shoulder injections and a C7-T1 interlaminar epidural injection on July 07, 2019. She has a remote history of surgery on her left shoulder. For the past two weeks, she has experienced a recurrence of pain, predominantly on the right side of her lower back. A lumbar sacral spine MRI from April 01, 2023, revealed a right-sided L4-L5 disc bulge with severe bilateral foraminal stenosis, a diffuse disc bulge at L5-S1 ascending to the right with an extraforaminal disc contacting the exiting right L5 nerve root, and severe right and moderate left neuroforaminal stenosis at L5-S1. For pain management, she was prescribed oxycodone/acetaminophen 5/325 mg, with the most recent prescription for 14 tablets issued on February 27, 2025. She has been taking one or two tablets per day during her recent pain flare-up. She presented accompanied by her daughter. Pain Description - Location: The patient reports persistent pain in her lower back, predominantly on the right side. - Radiation: She experiences right-sided lumbar radiculitis. - Onset and Duration: This is a chronic issue, with a significant flare-up of pain over the past two weeks. - Associated Symptoms: She also reports the recent onset of pain in her right shoulder, which hurts a little with movement. Results - Lumbar Sacral Spine MRI (04/01/2023): Findings include a right-sided L4-L5 disc bulge with severe bilateral foraminal stenosis; a diffuse disc bulge ascending to the right at the L5-S1 level with a right extraforaminal disc contacting the exiting right L5 nerve root; and severe right and moderate left neuroforaminal stenosis at the L5-S1 level. [facility] Medical History (Updated 03/05/25 @ 14:23 by Josse Delgado DO) Rotator cuff impingement syndrome of right shoulder Lumbar disc herniation Lumbar radiculitis Spinal stenosis, lumbar region with neurogenic claudication Alzheimer disease Dementia Obstructive sleep apnea Hypersomnia Snoring Cognitive disorder Obesity (BMI 35.0-39.9 without comorbidity) Depression Hyperlipidemia DJD (degenerative joint disease) Spinal stenosis Fibromyalgia Insomnia Diabetes COVID Thyroid nodule Lung nodule Cervical disc disease Surgical History Hx of cataract surgery Status post right knee replacement Hx of cervical spine surgery History of bunionectomy Hx of shoulder surgery Family History Sister Diabetes Social History (Updated 03/05/25 @ 14:03 by Hortencia Mustafa MA) Household Members: None Alcohol intake: current Alcohol intake frequency: does not drink Patient Tobacco Use Status: Never used Tobacco Current occupational status: retired Review of Systems Narrative Review of Systems - Constitutional: Denies fever or chills. - Gastrointestinal: Denies any change in bowel habits. - Genitourinary: Denies any change in bladder habits. - Musculoskeletal: Reports persistent lower back pain with right-sided radiation and recent onset of right shoulder pain. Physical Exam Exam Exam: Physical Exam - General: Patient appears to have lost weight. - Musculoskeletal: Examination of the right shoulder elicited some pain with movement. Restricted abduction. Positive Cao and Neer signs, negative drop-arm test. Dural tension signs were negative. Patient ambulates without antalgia. Gait was waddling. Forward flexed posture. Neurological examination of lower extremities demonstrated weakness of the right EHL. Lumbar extension was restricted. Vital Signs: BMI result Body Mass Index 38.4 Assessment & Plan Assessment & Plan (1) Lumbar radiculitis: Code(s): M54.16 - Radiculopathy, lumbar region Category: Medical (2) Spinal stenosis, lumbar region with neurogenic claudication: Code(s): M48.062 - Spinal stenosis, lumbar region with neurogenic claudication Category: Medical (3) Lumbar disc herniation: Code(s): M51.26 - Other intervertebral disc displacement, lumbar region Category: Medical (4) Rotator cuff impingement syndrome of right shoulder: Code(s): M75.41 - Impingement syndrome of right shoulder Category: Medical Plan Pain Management - Analgesia: The patient is using oxycodone/acetaminophen 5/325 mg for a recent pain flare-up, taking 1-2 tablets per day, which provides some control of her symptoms. - Activities of Daily Living: The patient has been in enough pain recently to require pain medication daily. - Aberrant Drug Related Behaviors: There are no signs of aberrant behavior; the patient uses medication sparingly, with refills several months apart historically. - Affect: The patient's daughter reported she was in a lot of pain when the symptoms returned, and the patient confirms she is still in pain. Plan Patient was informed and verbally consented to the use of an ambient scribe for clinic note documentation during this visit. 1. Chronic Low Back Pain With Right Lumbar Radiculitis The patient's chronic low back pain with right radiculitis has flared up over the last two weeks, consistent with her significant MRI findings of nerve root impingement and stenosis. A new prescription for oxycodone/acetaminophen 5/325 mg will be sent, for one tablet every four hours as needed for pain, with a quantity of 42 tablets. The patient and her daughter are instructed to try to make the prescription last as long as possible, ideally for three months. If refills are required on a more frequent or monthly basis, a formal pain management contract will be necessary. No injections are planned at this time, but the patient can call if she feels they are needed. Follow-up is scheduled in three months, or sooner if required. 2. Right Shoulder Pain The patient reports increasing pain in her right shoulder. This will be managed with the prescribed oral pain medication as needed, and the condition will be monitored. Discussion Notes I had a discussion with the patient and her daughter about the recent flare-up of her chronic low back and right leg pain. We reviewed the plan for her pain medication, oxycodone/acetaminophen. I explained that if she needs refills on a frequent basis, such as monthly, we will need to establish a formal pain management contract. For now, I will send a prescription for a one-week supply (42 tablets) and have asked them to make this last as long as possible, aiming for about three months. I advised them to follow up in three months or to call sooner if her pain worsens or she feels an injection is necessary. Patient Instructions - You will receive a new prescription for oxycodone/acetaminophen 5/325 mg. - Take 1 tablet by mouth every 4 hours as you need it for pain. - Please try to make this new supply of 42 pills last as long as possible, for at least a few months. - If you find you need a new prescription every month, we will need you to sign a pain medication agreement. - You do not need any pain injections at this time. - Schedule a follow-up appointment in about 3 months, or call us sooner if your pain gets worse or you feel you need an injection. Medications: Changed From oxycodone-acetaminophen 5-325 mg Partial fill upon request 1 tab PO BID 7 days PRN 14 tabs 0RF pain M48.062 - Spinal stenosis, lumbar region with neurogenic claudication, M54.16 - Radiculopathy, lumbar region To oxycodone-acetaminophen 5-325 mg Partial fill upon request 1 tab PO Q4H PRN 42 tabs 0RF pain 7 days M48.062 - Spinal stenosis, lumbar region with neurogenic claudication, M54.16 - Radiculopathy, lumbar region Coding Level of Care Code Est Pt Level 4 (25446) Add On Problem Visit Only Diagnoses Lumbar radiculitis M54.16 Spinal stenosis, lumbar region with neurogenic claudication M48.062 Lumbar disc herniation M51.26 Rotator cuff impingement syndrome of right shoulder M75.41
[2025-03-05 14:01] VITALS: BMI 38.4
--- OUTSIDE RECORDS SUMMARY | 2025-03-05 19:44 | XMS_ITS | Clinical Summary ---
Author Organization [facility] [address] [facility] Address [address] [place] [address] Phone Care Team Providers Care Sheet Metal Layout Mechanic Name Role Phone Richelle Ivan MD Primary [...] mouth 1 (one) time each day. Active lidocaine (LIDODERM) 5 % patch Place 1 Patch onto the skin every 24 hours. Apply for no more than 12 hours in any 24 hour period. 024 Active blood sugar diagnostic (FreeStyle Lite Strips) test strip Use to check fasting blood glucose every morning before breakfast 022 Active albuterol HFA (PROAIR HFA ; PROVENTIL HFA ; VENTOLIN HFA) 90 mcg/actuation inhaler Inhale 2 Puffs into the lungs every 4 hours as needed for Cough, Wheezing or Shortness of Breath. 023 Active freestyle (FreeStyle Lancets) 28 gauge lancets To check fasting blood glucose every morning before breakfast 100 each 3 025 Active sertraline (ZOLOFT) 25 mg tablet Take 1 tablet (25 mg total) by mouth 1 (one) time each day. 90 each 025 Active traZODone (DESYREL) 100 mg tablet Take 1 tablet (100 mg total) by mouth at bedtime. 90 tablet 3 025 Active amitriptyline (ELAVIL) 25 mg tablet TAKE (2) TABLETS BY MOUTH AT BEDTIME. 56 tablet 5 025 Active linaCLOtide (Linzess) 145 mcg capsule TAKE 1 CAPSULE BY MOUTH EVERY MORNING BEFORE BREAKFAST. DISPENSE IN ORIGINAL PACKAGE 30 capsule 4 025 Active atorvastatin (LIPITOR) 20 mg tablet TAKE 1 TABLET BY MOUTH ONCE DAILY 28 tablet 4 025 Active aspirin 81 mg EC tablet TAKE 1 TABLET BY MOUTH ONCE DAILY 28 tablet 4 025 Active lactulose (CHRONULAC) solution TAKE 15ML BY MOUTH 2 TIMES DAILY 1350 mL 1 025 Active Ozempic 1 mg/dose (4 mg/3 mL) injection pen INJECT 0.75mL (1MG) SUBCUTANEOSULY ONCE WEEKLY 3 mL 025 Active Ozempic 1 mg/dose (4 mg/3 mL) injection pen INJECT 0.75mL (1MG) SUBCUTANEOSULY ONCE WEEKLY 3 mL 025 2024 Discontinued Active Problems Problem Noted Date Diagnosed Date Type 2 diabetes mellitus with obesity 02/15/2024 Overview (12/20/2024): 12/20/24 Regulatory IMO Update Assessment & Plan (09/26/2024 11:16 AM EDT): Fair control of diabetes. Patient will continue with yearly Podiatric and Ophthomologic evaluations. Will continue Ozempic 1mg a week. Pending repeat labs. Patient will follow up in 6 months Assessment & Plan (04/21/2024 11:47 AM EST): [...] Future Other hyperlipidemia 02/15/2024 Assessment & Plan (09/26/2024 11:16 AM EDT): Given the patients cardiac risk profile, the patient requires an LDL cholesterol of less than 70. Continue Atorvastatin 20mg. I have instructed the patient on the principles of a low cholesterol diet and the importance of regular exercise. Pending repeat labs. Continue atorvastatin 20 mg daily. Assessment & Plan (04/21/2024 11:47 AM EST): Given the patients cardiac risk profile, the patient requires an LDL cholesterol of less than 70. Continue Atorvastatin 20mg. I have instructed the patient on the principles of a low cholesterol diet and the importance of regular exercise. Will check labs before her next visit. Continue atorvastatin 20 mg daily. Venous insufficiency 02/15/2024 Morbid obesity 02/15/2024 Assessment & Plan (04/21/2024 11:47 AM [...] nodule 02/15/2024 Loose right total knee arthroplasty 02/15/2024 Mild dementia without behavi oral disturbance, psychotic disturbance, mood disturbance, or anxiety 02/15/2024 Assessment & Plan (09/26/2024 11:16 AM EDT): Patient follows regularly with neurology. Her daughter has noticed progressive memory decline, with rapid progression. Currently on Donepezil and memantine. She was referred for an evaluation by another specialist in [place], pending appt. Assessment & Plan (04/21/2024 11:47 AM EST): [...] Encounters Date Type Department Care Team Description 03/05/2025 Telephone Adult Medicine [address] [phone] Lurdes Huntley MA from Last 3 Months Immunizations Immunization Administration Dates Next Due H1N1 Inj Preservative [...] Site/Laterality Comments TOTAL KNEE ARTHROPLASTY 11/2002 PROCEDURE: CT ARTHRP KNE CONDYLE&PLATU MEDIAL&LAT COMPARTMENTS; COMMENT: right and left CHOLECYSTECTOMY PROCEDURE: HISTORICAL CHOLECYSTECTOMY COLONOSCOPY 12/11/2008 PROCEDURE: CT COLONOSCOPY FLX DX W/COLLJ SPEC WHEN PFRMD; COMMENT: IMPRESSION: Up to splenic flexure, regular preparation, normal colon exam VENTRAL HERNIA REPAIR 2011 PROCEDURE: HISTORICAL VTRL WALL HERNIA RE HERNIA REPAIR PROCEDURE: HISTORICAL HERNIA REPAIR/UMB SHOULDER SURGERY PROCEDURE: HISTORICAL SHOULDER SURGERY; COMMENT: reverse replacement left 07/06 COLONOSCOPY PROCEDURE: HISTORICAL COLONOSCOPY; COMMENT: performed at [facility] on 03/29/2014 with a suggested 10 yr repeat ABDOMINAL SURGERY PROCEDURE: HISTORICAL ABDOMINAL SURGERY; COMMENT: Abdominoplasty/Tummy tuck OTHER SURGICAL HISTORY 05/02/2021 PROCEDURE: CT YOUNGER FACETECTOMY & FORAMOTOMY 1 VRT SGM [...] Acquired pes planovalgus 06/08/2017 DX:Acqu ired pes planovalgus Pre-diabetes DX:Pre-diabetes Family History Medical History Relation [...] your loved ones. For example, child care giver or elderly care for an older adult? [...] Date Recorded What is your living situation? Unrecognized valu e 03/17/2024 Comments No Sex and Gender Information Value Date Recorded Sex Assigned at Female 02/28/2024 2:05 PM EST Legal Sex Female 6:34 AM EST Gender Identity Female 02/28/2024 2:05 PM EST Sexual Orientation Straight 02/28/2024 2: 05 PM EST Last Filed Vital Signs Vital Sign Reading Time Taken Comments Blood Pressure 132/80 09/26/2024 10:49 AM EDT Pulse 83 09/26/2024 10:49 AM EDT Temperature 36.3 C (97.4 F) 09/26/2024 10:49 AM EDT Respiratory Rate 16 09/26/2024 10:49 AM EDT Oxygen Saturation 97% 02/15/2024 9:50 AM EST Inhaled Oxygen Concentration - - Weight 86.2 kg (190 lb) 09/26/2024 10:49 AM EDT Height 157.5 cm (5' 2 ) 03/27/2024 2:13 PM EST Body Mass Index 34.75 03/27/2024 2:13 PM EST Plan of Treatment Upcoming Encounters Date Type Department Care Team (Late st Contact Info) Description 05/11/2025 11:30 AM EST Office Visit Adult Medicine [facility] [address] [place] [address] Richelle Ivan MD [address] [place], [place] Health Maintenance Due Date Last Done Comments Diabetes: Annual Retina Eye Exam 01/28/1962 Zoster Vaccines (1 of 2) 01/28/2002 Medicare Annual Wellness Visit 02/28/2022 Colorectal Cancer Screening: Colonoscopy 03/28/2024 03/28/2014 Diabetes: Blood Sugar Control Test (HGBA1C) 05/23/2024 11/24/2023, 11/24/2023 COVID-19 Vaccine ( season) 2024 01/14/2021, 07/05/2020, 06/14/2020 Influenza Vaccine (#1) 2024 , 03/12/2022, 01/14/2021, Additional history exists Diabetes: Annual Urine Albumin-Creatinine Ratio (uACR) 11/23/2024 11/24/2023 Diabetes: Annual Foot Exam 12/23/2024 12/24/2023 Diabetes: Annual GFR (Glomerular Filtration Rate) 02/14/2025 02/15/2024, 11/24/2023, 11/24/2023 Social Influencers of Health Screening 03/17/2025 03/17/2024 Falls Risk Assessment 04/21/2025 04/21/2024, 024 Breast [...] Pneumococcal Vaccine: 50+ Years Completed 08/07/2020, 11/08/2017 Depression Screening Completed 04/21/2024, 04/15/19 24 HIB Vaccines Aged Out No longer eligi [...] for biopsy. PQRI CPT II 3342F Code 35262, 19514 PQRI 225 CPT II 7025F TISSUE DENSITY: The breasts are almost entirely fatty. (BI-RADS Category A) IMPRESSION: Benign. BI-RADS CATEGORY: 2 - BENIGN RECOMMENDATION: Screening bilateral mammogram is recommended in 1 year. Mammo Location: [facility], [address] [place] [id number] -------- FINAL REPORT -------- Dictated By: Adal Pelaez Dictated Date: 03/16/2024 11:52 ET Assigned Physician: Adal Pelaez Reviewed and Electronically Signed By: Adal Pelaez Signed Date: 03/16/2024 11:57 ET Workstation ID: [id number] Transcribed By: Self Edit Transcribed Date: 03/16/2024 11:52 ET Narrative 03/16/2024 11:57 AM EST CLINICAL: The patient is a 74 years Female presenting for routine screening mammography. COMPARISON: Outside studies most recently 02/22/2023 and most remotely 10/04/2018. TECHNIQUE: Full-field digital mammography of the breasts bilaterally consisting of tomosynthesis in MLO and CC projection is performed in the Shipptere 2000-D unit. Computer aided detection utilizing the iCAD system was utilized. FINDINGS: The breasts are again seen to be largely fatty replaced. Bilateral punctate calcifications remain of benign appearance and are without suspicious interval change. There is no suspicious cluster of microcalcifications, mass, [...] MLO and CC projection is performed in theIngenious Medographe 2000-D unit. Computer aided detection utilizing the SupplyBetterystem was utilized. FINDINGS: The breasts are again [...] for biopsy. PQRI CPT II 3342F Code 26978, 79414 PQRI 225 CPT II 7025F TISSUE DENSITY: The breasts are almost entirely fatty. (BI-RADS CategoryA) IMPRESSION: Benign. BI-RADS CATEGORY: 2 - BENIGN RECOMMENDATION: Screening bilateral mammogram is recommended in 1 year. Mammo Location: [facility], [address] [place] [id number] -------- FINAL REPORT -------- Dictated By: Adal Pelaez Dictated Date: 03/16/2024 11:52 ET Assigned Physician: Adal Pelaez Reviewed and Electronically Signed By: Adal Pelaez Signed Date: 03/16/2024 11:57 ET Workstation ID: [id number] Transcribed By: Self Edit Transcribed Date: 03/16/2024 11:52 ET us Self Referral [facility] IMG BI PROCEDURES Final Resu lt * (ABNORMAL) Comprehensive metabolic panel (02/15/2024 10:44 AM EST) Sodium 140 133 - 145 mmol/L LAB CHEMISTRY METHOD 02/15/2024 2:41 PM [facility] Potassium 4.2 3.5 - 5.5 mmol/L LAB CHEMISTRY METHOD 02/15/2024 2:41 PM [facility] Chloride 103 96 - 110 mmol/L LAB CHEMISTRY METHOD 02/15/2024 2:41 PM [facility] CO2 30 21 - 32 mmol/L LAB CHEMISTRY METHOD 02/15/2024 2:41 PM [facility] Anion Gap 7 3 - 11 LAB CHEMISTRY METHOD 02/15/2024 2:41 PM [facility] Glucose 106(H) 70 - 100 mg/dL LAB CHEMISTRY METHOD 02/15/2024 2:41 PM [facility] BUN 19 5 - 25 mg/dL LAB CHEMISTRY METHOD 02/15/2024 2:41 PM [facility] Creatinine 0.74 0.50 - 1.10 mg/dL LAB CHEMISTRY METHOD 02/15/2024 2:41 PM [facility] eGFR 86 >=60 mL/min/1. 73m2 LAB CHEMISTRY METHOD 02/15/2024 2:41 PM [facility] Comment:Calculation based on the Chronic Kidney Disease Epidemiology Collaboration (CKD-EPI) equation refit without adjustment for race. BUN/Creatinine Ratio 25.7 LAB CHEMISTRY METHOD 02/15/2024 2:41 PM [facility] Calcium 9.5 8.5 - 10.5 mg/dL LAB CHEMISTRY METHOD 02/15/2024 2:41 PM [facility] AST (SGOT) 30 10 - 42 unit/L LAB CHEMISTRY METHOD 02/15/2024 2:41 PM [facility] ALT (SGPT) 25 10 - 60 unit/L LAB CHEMISTRY METHOD 02/15/2024 2:41 PM [facility] Alkaline Phosphatase 140(H) 42 - 121 unit/L LAB CHEMISTRY METHOD 02/15/2024 2:41 PM [facility] Total Protein 7.5 6.0 - 8.0 g/dL LAB CHEMISTRY METHOD 02/15/2024 2:41 PM EST [facility] Albumin 3.9 3.2 - 5.0 g/dL LAB CHEMISTRY METHOD 02/15/2024 2:41 PM EST [facility] Total Bilirubin 0.5 0.0 - 1.4 mg/dL LAB CHEMISTRY METHOD 02/15/2024 2:41 PM EST [facility] Blood Venous blood specimen / Unknown Venipuncture / Unknown 02/15/2024 10:44 AM EST 02/15/2024 10:44 AM EST Miguel Fleming MD LAB BLOOD ORDERABLES F inal Result [facility] [address] [place] [address], * Diabetes Foot Exam (12/24/2023) [facility] Diabetes: Annual Foot Exam abstracted Historical Provider HEALTH MAINTENANCE Final Result * Urine Albumin Creatinine Ratio (11/24/2023) [facility] Urine Albumin Creatinine Ratio abstracted Historical Provider HEALTH MAINTENANCE Final Result * (ABNORMAL) Hemoglobin A1c (11/24/2023) [facility] Hemoglobin A1C 7.5(A) <=6.5 % Blood Venous blood specimen / Unknown Historical Provider LAB BLOOD ORDERABLES Grace l Result * (ABNORMAL) Lipid panel (11/24/2023) [facility] LDL/HDL Ratio 4 0 - 4 Triglycerides 176(A) 0 - 150 mg/dL Cholesterol 146 0 - 200 mg/dL HDL 38(A) >=40 mg/dL LDL Cholesterol 73 0 - 100 mg/dL Blood Venous blood specimen / Unknown Historical Provider LAB BLOOD ORDERABLES Grace l Result * Falls Risk Assessment (04/15/2023) Pathologist [facility] Falls Risk Assessment abstracted Historical Provider HEALTH MAINTENANCE Final Result * Depression Screening (04/15/2023) Depression Screening abstracted [facility] Provider HEALTH MAINTENANCE Final Result * DXA BONE DENSITY STUDY 1+ SITS AXIAL SKEL (02/22/2023 2:24 PM EST) Anatomical Region Laterality Modality Bone Densitometr y 03/12/2022 3:24 PM EST Narrative 02/24/2023 1:11 PM EST BONE DENSITY Lumbar Spine T-score is +1.4 [...] compared to most recent bone density examination Confidence level is +/-95%. Impression: Based on the World Health Organization criteria, Ella Obrien should be classified as having osteopenia. This patient has a 7% risk of major osteoporotic fracture and a 1.3% risk of hip fracture over the next 10 years. (World Health Organization Fracture Risk Assessment) [facility] Department of Internal Medicine recommends [...] of fracture risk by FRAX. Procedure Note Kylie Campos MD - 04/27/2023 BONE DENSITY Lumbar Spine [...] (World Health Organization Fracture Risk Assessment) [facility] Department of Internal Medicine recommendsusing [...] fracture risk by FRAX. Richelle Ivan MD IMG DXA PROCEDURES Final Result * Hepatitis C Screening (06/26/2014) Hepatitis C Screening abstracted Historical Provider HEALTH MAINTENANCE Final Result * Colonoscopy (03/28/2014) Colonoscopy no interpretation , abstracted Anatomical Region Laterality Modality Other Historical Provider HEALTH MAINTENANCE Final Result from Last 3 Months or Most Recently Relevant to Health Maintenance Insurance [facility] [facility] MEDIC[facility] Member Subscriber Plan / Payer (Ef fective 2023-Present) Name:CamilleRoloElla Relation to Subscriber:Self Name:CamilleRoloElla Payer ID:[id number] Group ID:[id number] Type:Not on file Address: [place] [address] [address] [id number] Advance Directives Documents on File Type Date Recorded Patient Doggy Daycare Activities Director Expl anation Health Care Decision (hx) 06/04/2011 [...] (hx) 06/04/2011 AD CLAY DIRECTIVE Care Teams Sheet Metal Layout Mechanic Relationship Specialty Start Date End Date Richelle Ivan MD [address] [place] [phone] PCP - General Internal Medicine 02/15/24
--- OUTSIDE RECORDS SUMMARY | 2025-03-05 19:44 | XMS_ITS | Encounter Summary ---
Author Organization [email or web address] Address [address] [place] [address] Care Team Providers Care Clothing Busheler Name Role Phone Richelle Ivan MD Primary Care Prov ider Reason for Visit * Reason Onset Date Comments Medication Problem 03/05/2025 Encounter Details Date Type Department Care Team ([facility] Contact Info) Description 03/05/2025 Telephone Adult Medicine [address] [phone] Lurdes Huntley MA Social History Tobacco Use Types Packs/Day Years [...] for your loved ones. For example, child development assistant or elderly care for an older adult? [...] PM EST documented as of this encounter Progress Notes * Lurdes Huntley MA - 03/05/2025 1:37 PM EST Medication Problem: What is the name of the medication patient is having a problem with?: amtriptyline What is the problem?: needs prior auth.Pharm says she sent form on 02/28/25 to cover my meds.[place] code is [id number] Who is calling about the problem? : A pharmacist: Pharmacy: [facility] Pharmacist Name: [facility] Pharmacy Is this a NEW medication?: no How long has the patient been taking this medication? A WHILE Who prescribed this medication for the patient? PCP Who is patients PCP?: Richelle Otero MD Payor: [facility] MED[facility] / Plan: [facility] ONE CARE / Product Type: *No Product type* / documented in this encounter Plan of Treatment Upcoming Encounters Date Type Department Care Team (Late st Contact Info) Description 05/11/2025 11:30 AM EST Office Visit Adult Medicine [address] [phone] Richelle Ivan MD [address] [place] [address] documented as of this encounter Visit Diagnoses Not on filedocumented in this encounter Additional Health Concerns Assessment Noted Time PHQ-9 Depression Total Score: 0 04/21/19 25 11:04 AM EST documented as of this encounter Care Teams Clothing Busheler Relationship Specialty Start Date End Date Richelle Ivan MD [address] [place] [address] PCP - General Internal Medicine 02/15/24 documented as of this encounter
== END 2025-03-05 14:33 | disposition home or self-care (01) ==
LOC: HO.HPHYS 13:33
PROVIDERS: PCP Internal Medicine; Visit Provider Physical Medicine & Rehabilitation
DX: M54.16 Radiculopathy, lumbar region (principal); M48.062 Spinal stenosis, lumbar region with neurogenic claudication; M51.26 Other intervertebral disc displacement, lumbar region; M75.41 Impingement syndrome of right shoulder
CPT/HCPCS: 99214; G2211

== ENCOUNTER → 2025-03-05 13:33 | Outpatient (BNVA) | payer MEDICARE, MEDICAID, SELFPAY | PROVIDERS: PCP Internal Medicine; Visit Provider Physical Medicine & Rehabilitation | DX: M54.16 Radiculopathy, lumbar region (principal); M48.062 Spinal stenosis, lumbar region with neurogenic claudication; M51.26 Other intervertebral disc displacement, lumbar region; M75.41 Impingement syndrome of right shoulder; Z79.891 Long term (current) use of opiate analgesic | CPT/HCPCS: 99212 ==